=== PATIENT | female | born 1980 | race Caucasian/White ===

== ENCOUNTER 2019-12-25 17:11 | Emergency (ER) | payer SELFPAY ==
[2019-12-25 17:54] LABS: Absolute Lymphocytes (CBC) 2.9 K/uL (0.7-4.9); Basophils % 1.2 % (0-1.3); Hematocrit 41.6 % (36.0-45.0); Lymphocytes % 30.4 % (15.3-44.8); RBC Red Blood Cell Count 4.98 M/uL (3.86-4.86)
[2019-12-25 18:15] LABS: Bilirubin Direct 0.1 mg/dL (0-0.2); Bilirubin Total 0.7 mg/dL (0.2-1.0); Protein, Total 8.4 g/dL (6.4-8.2)
[2019-12-25 18:16] LABS: Potassium 3.8 mmol/L (3.5-5.1)
[2019-12-25] MEDS ORDERED: MORPHINE 4 MG/ML SYR ONE ×2 (18:36→21:37)
[2019-12-25] MEDS ORDERED: ONDANSETRON 4 MG/2 ML VIAL ONE (18:36)
[2019-12-25] MEDS ORDERED: NA CHLORIDE 0.9% 1,000 ML ONE (18:36)
[2019-12-25 19:25] LABS: Barbiturates NEGATIVE (NEGATIVE); Benzodiazepines NEGATIVE (NEGATIVE); Cocaine NEGATIVE (NEGATIVE); METHAMPHETAM NEGATIVE (NEGATIVE); Methadone NEGATIVE (NEGATIVE); Opiates POSITIVE (NEGATIVE); Phencyclidine NEGATIVE (NEGATIVE); THC Cannibis NEGATIVE (NEGATIVE)
--- NOTE | 2019-12-25 19:38 | RAD REPORT ---
EXAM DESCRIPTION: CT - Abdomen Pelvis W Contrast - 12/25/2019 7:22 pm CLINICAL HISTORY: Abdominal pain COMPARISON: none. TECHNIQUE: Computed axial tomography of the abdomen pelvis was obtained. 100 cc Isovue-300 was admin istered intravenously. Oral contrast was not requested which limits evaluation of bowel. All CT scans are performed using dose optimization technique as appropriate and may include automated exposure control or mA/KV adjustment according to patient size. FINDINGS: The liver, spleen, pancreas, adrenal and kidneys appear unremarkable. There is no evidence of diverticulitis. Normal appendix A 2 centimeter left ovarian cyst without significant free fluid Cholecystectomy Apparent thickening of the wall of the descending colon. IMPRESSION: A 2 centimeter left ovarian cyst without significant free fluid Apparent thickening of the wall of the descending colon probably secondary to incomplete distention. A mild colitis can also have this appearance should be correlated clinically
[2019-12-25 20:50] LABS: Urine Specific Gravity >1.030 (1.005-1.030)
[2019-12-25 20:50] LABS: Urine Blood NEGATIVE (NEG); Urine Glucose NEGATIVE (NEG); Urine Protein NEGATIVE (NEG); Urine Specific Gravity >1.030 (1.005-1.030); Urine pH 5.5 (5.0-7.0)
--- NOTE | 2019-12-25 21:52 | EDPHYS ---
Physician Documentation [facility] Name: Mee Prieto Age: 39 yrs Sex: Female : 1980 Arrival Date: 12/25/2019 Time: 17:18 Bed 24 Private MD: ED Physician Roly Chen HPI: 12/24 17:47 This 39 yrs old Female presents to ER via EMS with complaints of Abdominal kdr Pain. 17:47 The patient presents with abdominal pain in the right upper quadrant, right lower kdr quadrant. Onset: The symptoms/episode began/occurred suddenly, 1.5 hour(s) ago. The symptoms do not radiate. Associated signs and symptoms: Pertinent positives: nausea, Pertinent negatives: anorexia, blood in stools, chest pain, constipation, diarrhea, dysuria, fever, headache, hematuria, palpitations, shortness of breath, vaginal discharge, vomiting, vomiting blood. The symptoms are described as constant, sharp, steady. Modifying factors: The symptoms are alleviated by nothing, the symptoms are aggravated by coughing, breathing deeply, movement, touching the area, vomiting, walking. Severity of pain: At its worst the pain was moderate severe incapacitating just prior to arrival, in the emergency department the pain is unchanged. The patient has experienced a previous episode, When she had gallbladder problems. The patient has not recently seen a physician. Historical: - Allergies: 19:51 No Known Allergies; sg - Home Meds: 19:00 [employer] Thyroid 60 mg oral tab daily [Active]; Celexa 20 mg Oral tab 1 tab once daily ls4 [Active]; - PMHx: 19:00 Hypothyroidism; Depression; ls4 - PSHx: 19:00 Cholecystectomy; ls4 - Immunization history:: Adult Immunizations up to date. - Social history:: Smoking status: Patient reports the use of cigarette tobacco products, smokes one-half pack cigarettes per day, Patient uses alcohol, occasionally. ROS: 17:47 Constitutional: Negative for fever, chills, and weight loss, Eyes: Negative for injury, kdr pain, redness, and discharge, ENT: Negative for injury, pain, and discharge, Neck: Negative for injury, pain, and swelling, Cardiovascular: Negative for chest pain, palpitations, and edema, Respiratory: Negative for shortness of breath, cough, wheezing, and pleuritic chest pain, Back: Negative for injury and pain, : Negative for injury, bleeding, discharge, and swelling, MS/Extremity: Negative for injury and deformity, Skin: Negative for injury, rash, and discoloration, Neuro: Negative for headache, weakness, numbness, tingling, and seizure activity. Psych: Negative for depression, anxiety, suicide ideation, homicidal ideation, and hallucinations, Allergy/Immunology: Negative for hives, rash, and allergies, Endocrine: Negative for neck swelling, polydipsia, polyuria, polyphagia, and marked weight changes, Hematologic/Lymphatic: Negative for swollen nodes, abnormal bleeding, and unusual bruising. 17:47 Abdomen/GI: Positive for abdominal pain, nausea, abdominal cramps, Negative for vomiting, diarrhea, abdominal cramps, abdominal distension, anorexia, dysphagia, hematemesis, black/tarry stool, rectal pain, rectal bleeding, bowel incontinence. Exam: 17:47 Constitutional: This is a well developed, well nourished patient who is awake, alert, kdr and in no acute distress. Head/Face: Normocephalic, atraumatic. Eyes: Pupils equal round and reactive to light, extra-ocular motions intact. Lids and lashes normal. Conjunctiva and sclera are non-icteric and not injected. Cornea within normal limits. Periorbital areas with no swelling, redness, or edema. Neck: Trachea midline, no thyromegaly or masses palpated, and no cervical lymphadenopathy. Supple, full range of motion without nuchal rigidity, or vertebral point tenderness. No Meningismus. Chest/axilla: Normal chest wall appearance and motion. Nontender with no deformity. No lesions are appreciated. Cardiovascular: Regular rate and rhythm with a normal S1 and S2. No gallops, murmurs, or rubs. Normal PMI, no JVD. No pulse deficits. Respiratory: Lungs have equal breath sounds bilaterally, clear to auscultation and percussion. No rales, rhonchi or wheezes noted. No increased work of breathing, no retractions or nasal flaring. Back: No spinal tenderness. No costovertebral tenderness. Full range of motion. Skin: Warm, dry with normal turgor. Normal color with no rashes, no lesions, and no evidence of cellulitis. MS/ Extremity: Pulses equal, no cyanosis. Neurovascular intact. Full, normal range of motion. Neuro: Awake and alert, GCS 15, oriented to person, place, time, and situation. Cranial nerves II-XII grossly intact. Motor strength 5/5 in all extremities. Sensory grossly intact. Cerebellar exam normal. Normal gait. Psych: Awake, alert, with orientation to person, place and time. Behavior, mood, and affect are within normal limits. 17:47 Abdomen/GI: Inspection: abdomen appears normal, Bowel sounds: active, diminished, in all quadrants, Palpation: soft, moderate abdominal tenderness, in the anterior aspect of right lateral abdomen and right lower quadrant, mass, is not appreciated, rebound tenderness, is not appreciated, voluntary guarding, is not appreciated, involuntary guarding, is not appreciated. Vital Signs: 19:49 BP 103 / 63; Pulse 77; Resp 16; Temp 97.2; Pulse Ox 97% on R/A; Pain 4/10; sg MDM: 17:47 Data reviewed: vital signs, nurses notes, lab test result(s), radiologic studies. kdr Counseling: I had a detailed discussion with the patient and/or guardian regarding: the historical points, exam findings, and any diagnostic results supporting the discharge/admit diagnosis, lab results, radiology results, the need for outpatient follow up. 21:50 Differential diagnosis: appendicitis, bowel obstruction, cholecystitis, Cholelithiasis, mh7 diverticulitis, Ectopic , non-specific abd pain, pancreatitis, Peptic Ulcer Disease, Pyelonephritis, urinary tract infection. Data interpreted: Pulse oximetry: on room air is 97 %. Interpretation: normal. Counseling: I had a detailed discussion with the patient and/or guardian regarding: to return to the emergency department if symptoms worsen or persist or if there are any questions or concerns that arise at home. Response to treatment: the patient's symptoms have markedly improved after treatment. 21:[address] [facility] 12/24 17:31 Order name: Basic Metabolic Panel; Complete Time: 18:42 [facility] 12/24 17:31 Order name: CBC with Diff; Complete Time: 18:42 [facility] 12/24 17:31 Order name: Hepatic Function; Complete Time: 18:42 [facility] 12/24 17:31 Order name: Lipase; Complete Time: 18:42 [facility] 12/24 17:46 Order name: ETOH Level; Complete Time: 21:17 [facility] 12/24 17:46 Order name: UDS; Complete Time: 21:17 kdr 12/24 17:31 Order name: IV Saline Lock; Complete Time: 18:24 kdr 12/24 17:46 Order name: CT Abd/Pelvis - IV Contrast Only; Complete Time: 21:17 kdr 12/24 20:44 Order name: Urine Dipstick--Ancillary (enter results); Complete Time: 21:17 12/24 20:45 Order name: Urine --Ancillary (enter results); Complete Time: 21:17 12/24 17:31 Order name: Labs collected and sent; Complete Time: 18:24 kdr 12/24 17:46 Order name: Urine Dipstick-Ancillary (obtain specimen); Complete Time: 18:56 kdr 12/24 17:46 Order name: Urine Test (obtain specimen); Complete Time: 18:56 kdr Administered Medications: 18:35 Drug: NS 0.9% 1000 ml Route: IV; Rate: 1 bolus; Site: left wrist; ls4 18:35 Drug: Zofran (Ondansetron) 4 mg Route: IVP; Site: left wrist; ls4 18:56 Follow up: Response: No adverse reaction; Marked relief of symptoms ls4 18:38 Drug: morphine 4 mg Route: IVP; Site: left wrist; ls4 18:56 Follow up: Response: No adverse reaction; Marked relief of symptoms ls4 21:32 Drug: morphine 4 mg Route: IVP; Site: left hand; sg Disposition: 12/25/19 21:51 Discharged to Home. Impression: Colitis. - Condition is Stable. - Discharge Instructions: Colitis. - Prescriptions for Zofran ODT 4 mg Oral tablet,disintegrating - place 1 tablet by TRANSLINGUAL route every 8 hours; 10 tablet. Bentyl 20 mg Oral Tablet - take 1 tablet by ORAL route every 6 hours As needed; 20 tablet. Flagyl 500 mg Oral Tablet - take 1 tablet by ORAL route every 8 hours for 7 days; 21 tablet. Cipro 500 mg Oral Tablet - take 1 tablet by ORAL route every 12 hours for 7 days; 14 tablet. - Medication Reconciliation Form, Thank You Letter, Antibiotic Education, Prescription Opioid Use form. - Follow up: Private Physician; When: 2 - 3 days; Reason: Worsening of condition, Recheck today's complaints, Continuance of care, Re-evaluation by your physician. - Problem is new. - Symptoms have improved. Signatures: Dispatcher [employer] EDMS Eliseo Rao RN RN sg Trino Salvador MD MD [facility] Jennifer Garrett RN RN ls4 Roly Chen MD MD 7 Corrections: (The following items were deleted from the chart) 22:00 21:51 12/25/2019 21:51 Discharged to Home. Impression: Colitis. Condition is Stable. sg Forms are Medication Reconciliation Form, Thank You Letter, Antibiotic Education, Prescription Opioid Use. Follow up: Private Physician; When: 2 - 3 days; Reason: Worsening of condition, Recheck today's complaints, Continuance of care, Re-evaluation by your physician. Problem is new. Symptoms have improved. mh7
--- NOTE | 2019-12-25 21:52 | ER ---
Nurse's Notes [facility] Name: Mee Prieto Age: 39 yrs Sex: Female : 1980 Arrival Date: 12/25/2019 Time: 17:18 Bed 24 Private MD: Diagnosis: Colitis Presentation: 12/24 17:19 Chief complaint: EMS states: CALLED FOR ABDOMINAL PAIN. PT STATES THE PAIN WOKE HER ls4 FROM A NAP ABOUT AN HOUR AND A HALF AGO. Coronavirus screen: Proceed with normal triage. Patient denies a cough. Patient denies shortness of breath or difficulty breathing. Patient denies measured and/or subjective temperature greater than 100.4F prior to today's visit. Patient denies travel on a cruise ship or to a country the [facility] currently lists as an affected area. Patient denies contact with known and/or suspected case of COVID-19. Ebola Screen: No symptoms or risks identified at this time. Initial Sepsis Screen: Does the patient meet any 2 criteria? No. Patient's initial sepsis screen is negative. Does the patient have a suspected source of infection? No. Patient's initial sepsis screen is negative. Risk Assessment: Do you want to hurt yourself or someone else? Patient reports no desire to harm self or others. Onset of symptoms was December 25, 2019 at 16:00. Care prior to arrival: None. Activity prior to arrival: None. 17:19 Method Of Arrival: EMS: [facility] ls4 17:19 Acuity: KWADWO 3 ls4 Triage Assessment: 18:25 General: Appears uncomfortable, Behavior is calm, cooperative. Neuro: No deficits ls4 noted. Cardiovascular: No deficits noted. Respiratory: No deficits noted. GI: Abdomen is non-distended, Bowel sounds present X 4 quads. Abdomen is tender to palpation in right lower quadrant. 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 - Social history:: Smoking status: Patient reports the use of cigarette tobacco products, smokes one-half pack cigarettes per day, Patient uses alcohol, occasionally. Screenin:20 Abuse screen: Denies threats or abuse. Denies injuries from another. Nutritional ls4 screening: No deficits noted. Tuberculosis screening: No symptoms or risk factors identified. Fall Risk None identified. Assessment: 17:20 General: SEE TRIAGE . ls4 17:20 Pain: Complains of pain in right lower quadrant Pain currently is 10 out of 10 on a ls4 pain scale. Quality of pain is described as stabbing. Neuro: No deficits noted. Cardiovascular: No deficits noted. Respiratory: No deficits noted. 18:57 Reassessment: Patient appears in no apparent distress at this time. Patient and/or ls4 family updated on plan of care and expected duration. Pain level reassessed. Patient is alert, oriented x 3, equal unlabored respirations, skin warm/dry/pink. 19:48 Reassessment: Patient appears in no apparent distress at this time. Patient and/or sg family updated on plan of care and expected duration. Pain level reassessed. pt states I still have the pain, its much less than before but still there, reports nausea has improved, results are back. ERP notified, pt awaiting new orders at this time. 20:42 Reassessment: Patient appears in no apparent distress at this time. Patient and/or sg family updated on plan of care and expected duration. Pain level reassessed. Patient is alert, oriented x 3, equal unlabored respirations, skin warm/dry/pink. no new orders received at this time, pt resting and watching TV, awaiting dispo orders. Vital Signs: 19:49 BP 103 / 63; Pulse 77; Resp 16; Temp 97.2; Pulse Ox 97% on R/A; Pain 4/10; sg ED Course: 17:18 Patient arrived in ED. ls4 17:20 Triage completed. ls4 17:20 Patient has correct armband on for positive identification. Bed in low position. Call ls4 light in reach. Side rails up X 1. secured entrance monitor on. Pulse ox on. NIBP on. Warm blanket given. Verbal reassurance given. Diet: Patient is NPO. 17:20 No provider procedures requiring assistance completed. Patient maintains SpO2 ls4 saturation greater than 95% on room air. 17:31 Trino Salvador MD is Attending Physician. kdr 18:24 Jennifer Garrett RN is Primary Nurse. ls4 18:25 Initial lab(s) drawn, by me, sent to lab. Inserted saline lock: 24 gauge in right ls4 wrist, using aseptic technique. 19:01 Attending Physician role handed off by Trino Salvador MD [facility] 19:01 Roly Chen MD is Attending Physician. [facility] 19:22 Primary Nurse role handed off by Jennifer Garrett RN 19:22 Eliseo Rao RN is Primary Nurse. sg 19:22 CT Abd/Pelvis - IV Contrast Only In Process Unspecified. EDMS 19:[address] back from [address]. sg Administered Medications: 18:35 Drug: NS 0.9% 1000 ml Route: IV; Rate: 1 bolus; Site: left wrist; ls4 18:35 Drug: Zofran (Ondansetron) 4 mg Route: IVP; Site: left wrist; ls4 18:56 Follow up: Response: No adverse reaction; Marked relief of symptoms ls4 18:38 Drug: morphine 4 mg Route: IVP; Site: left wrist; ls4 18:56 Follow up: Response: No adverse reaction; Marked relief of symptoms ls4 21:32 Drug: morphine 4 mg Route: IVP; Site: left hand; sg Outcome: 21:[address] . [facility] 22:00 Patient left the ED. sg Signatures: Dispatcher [employer] EDMS Eliseo Rao RN RN Trino Salvador MD MD [facility] Jennifer Garrett RN RN 4 Roly Chen MD MD [facility] Corrections: (The following items were deleted from the chart) 20:24 19:48 Reassessment: Patient appears in no apparent distress at this time. Patient sg and/or family updated on plan of care and expected duration. Pain level reassessed. pt states I still have the pain, its much less than before but still there, reports nausea has improved, results are back. Yung WILL notified, pt awaiting new orders at this time sg
[2019-12-25 22:14] VITALS: BP 103/63; TEMP 97.2; O2SAT 97
== END 2019-12-25 22:00 | disposition home or self-care (01) ==
LOC: ER 17:11
DX: K52.9 Noninfective gastroenteritis and colitis, unspecified (principal); E03.9 Hypothyroidism, unspecified; F32.9 Major depressive disorder, single episode, unspecified; F17.210 Nicotine dependence, cigarettes, uncomplicated
CPT/HCPCS: 36415; 74177; 80048; 80076; 80307; 80320; 81003; 81025; 83690; 85025; 99285; J2405; J7030; Q9967

== ENCOUNTER 2020-01-08 09:06 | Emergency (ER) | payer SELFPAY ==
--- OUTSIDE RECORDS SUMMARY | 2020-01-08 09:20 | XMS REPORT | Clinical Summary ---
:1980 [facility] Address [address] [place] [address] Care Team Providers Name Role Phone Jimbo Dior MD Primary Care Provider Unavailable Allergies No Known Allergies Medications Medication Sig Dispensed Refills Start Date End Date Status citalopram (CELEXA) 1/2 tab(s) 0 06/13/2016 Active 20 MG tablet [employer]RO[employer] 60 mg Tab TAKE 1 TABLET BY 0 01/06/2019 Active MOUTH ONCE DAILY FOR 90 DAYS budesonide-formotero Inhale 2 puffs by 0 Active l (SYMBICORT) 80-4.5 mouth via inhaler mcg/actuation 2 (two) times inhaler daily. ALBUTEROL INHL Inhale by mouth 0 Active via inhaler. sulfamethoxazole-tri Take 1 tablet (160 20 tablet 0 02/13/2019 methoprim (BACTRIM mg of trimethoprim 9 DS) 800-160 mg per total) by mouth 2 tablet (two) times daily for 10 days. cephalexin (KEFLEX) Take 1 capsule 40 capsule 0 02/13/2019 500 MG capsule (500 mg total) by 9 mouth 4 (four) times daily for 10 days. acetaminophen-codein Take 1 tablet by 8 tablet 0 02/13/2019 0 e (TYLENOL #3) mouth every 6 9 300-30 mg per tablet (six) hours as needed for Pain for up to 10 days. Max Daily Amount: 4 tablets ondansetron (ZOFRAN Take 1 tablet (4 14 tablet 0 02/13/2019 ODT) 4 MG mg total) by mouth 9 disintegrating every 8 (eight) tablet hours as needed for Nausea for up to 7 days. Active Problems Not on file Encounters Date Type Specialty Care Team Description 02/13/2019 Emergency Emergency Medicine [place], Keiko Gutierrez llulitis of right lower extremity (Primary Dx); Bilateral leg p ain; Right leg swell ing; Malaise 02/13/2019 Travel after 01/07/2019 Social History Tobacco Use Types Packs/Day Years Used Date Current Every Day Smoker Cigarettes 0.5 Smokeless Tobacco: Never Used Comments: a few cigarettes a day. mostly vapes Alcohol Use Drinks/Week oz/Week Comments No Sex Assigned at Date Recorded Not on file Job Start Date Occupation Industry Not on file Not on file Not on file Travel History Travel Start Travel End No recent travel history available. Last Filed Vital Signs Vital Sign Reading Time Taken Blood Pressure 120/75 02/13/2019 11:23 AM CDT Pulse 90 02/13/2019 11:23 AM CDT Temperature 36.7 C (98 F) 02/13/2019 11:23 AM CDT Respiratory Rate 18 02/13/2019 11:23 AM CDT Oxygen Saturation 96% 02/13/2019 7:25 AM CDT Inhaled Oxygen Concentration - - Weight 77.1 kg (170 lb) 02/13/2019 7:25 AM CDT Height 160 cm (5' 3") 02/13/2019 7:25 AM CDT Body Mass Index 30.11 02/13/2019 7:25 AM CDT Plan of Treatment Not on file Procedures Procedure Name Priority Date/Time Associated Comments Diagnosis PERIPHERAL VASCULAR 02/13/2019 9:40 REPORT - SCAN AM CDT VENOUS DOPPLER LEGS STAT 02/13/2019 8:53 Resu lts for this BILATERAL AM CDT procedure are i n the results section. CBC W/PLT COUNT & AUTO STAT 02/13/2019 8:17 R esults for this DIFFERENTIAL AM CDT procedure are i n the results section. SCREEN, STAT 02/13/2019 8:17 Result s for this URINE AM CDT procedure are i n the results section. COMPREHENSIVE STAT 02/13/2019 8:17 Results fo r this METABOLIC PANEL AM CDT procedure ar e in the results section. CBC W/PLT COUNT & AUTO STAT 02/13/2019 8:17 R esults for this DIFFERENTIAL AM CDT procedure are i n the results section. after 01/07/2019 Results PERIPHERAL VASCULAR REPORT - SCAN (02/13/2019 9:40 AM CDT) Narrative Performed At This result has an attachment that is no t available. Venous doppler legs bilateral (02/13/2019 8:53 AM CDT) Specimen Narrative Performed At FINAL REPORT [facility] TECHNIQUE: Bilateral lower extremity theo ous ultrasound dated 02/13/2019 CLINICAL HISTORY: Leg swelling eval COMPARISON STUDY: Non FINDINGS: There is normal flow, compress ion, respiratory variation and augmentation in all the deep venous structures from the inguinal to popliteal region in both lower extrem ities. The posterior tibial and peroneal veins were also assessed an d are unremarkable. Impression: No evidence of a DVT in [facility] lower extremity. Signed: Tiana De Luna MD Report Verified Date/Time:02/13/2019 09:06:28 Reading Location: [facility] Procedure Note Interface, External Ris In - 02/13/2019 9:08 AM CDT FINAL REPORT TECHNIQUE: Bilateral lower extremity theo ous ultrasound dated 02/13/2019 CLINICAL HISTORY: Leg swelling eval COMPARISON STUDY: Non FINDINGS: There is normal flow, compress ion, respiratory variation and augmentation in all the deep venous structures from the inguinal to popliteal region in both lower extrem ities. The posterior tibial and peroneal veins were also assessed an d are unremarkable. Impression: No evidence of a DVT in [facility] lower extremity. Signed: Tiana De Luna MD Report Verified Date/Time: 02/13/2019 0 9:06:28 Reading Location: [facility] Reading Katt Performing Organization Address City/State/Zipcode Phone Number [facility] CBC with platelet count + automated diff (02/13/2019 8:17 AM CDT) WBC 5.8 4.0 - 10.0 K/L [facility] RBC 4.18 4.00 - 5.00 M/L [facility] Hemoglobin 11.5 (L) 12.0 - 15.5 GM/DL [facility] Hematocrit 34.5 (L) 36.0 - 46.0 % [facility] MCV 82.5 82.0 - 99.0 fL [facility] MCH 27.5 27.0 - 33.0 pg [facility] MCHC 33.3 32.0 - 36.0 GM/DL [facility] RDW 13.4 12.0 - 15.0 % [facility] Platelets 141 (L) 150 - 430 K/CU MM [facility] MPV 9.3Comment: 6.0 - 11.5 fL [facility] MPV-Approximately 20% positive bias due to method change. nRBC 0 0 - 0 /100 WBC [facility] % Neutros 50 % [facility] % Lymphs 32 % [facility] % Monos 11 % [facility] % Eos 6 % [facility] % Baso 1 % [facility] # Neutros 2.89 1.80 - 8.00 K/L [facility] # Lymphs 1.83 1.48 - 4.50 K/L [facility] # Monos 0.62 0.00 - 1.30 K/L [facility] # Eos 0.37 0.00 - 0.50 K/L [facility] # Baso 0.03 0.00 - 0.20 K/L [facility] Immature 0 0 - 0 % [facility] Granulocytes-Relative Specimen Blood Performing Organization Address [facility] Phone Number [facility] [address] [address] screen, urine (02/13/2019 8:17 AM CDT) Preg Test, Ur Negative [facility] Specimen Urine Performing Organization Address [facility] Phone Number [facility] [address] [address] Comprehensive metabolic panel (02/13/2019 8:17 AM CDT) Protein, Total 7.3 6.0 - 8.5 gm/dL [facility] Albumin 3.8 3.5 - 5.0 g/dL [facility] Alkaline Phosphatase 127 (H) 30 - 115 U/L [facility] Total Bilirubin 0.6 0.1 - 1.3 mg/dL [facility] Sodium 136 135 - 148 meq/L [facility] Potassium 3.5 3.5 - 5.5 meq/L [facility] Chloride 98 98 - 106 meq/L [facility] CO2 28 20 - 31 meq/L [facility] BUN 11 10 - 26 mg/dL [facility] Creatinine 0.79 0.50 - 1.20 mg/dL [facility] Glucose 132 (H) 70 - 110 mg/dL [facility] Calcium 9.0 8.5 - 10.5 mg/dL [facility] AST 38 5 - 40 U/L [facility] ALT 55 (H) 6 - 50 U/L [facility] EGFR 81Comment: ESTIMATED GFR mL/min/1.73 sq m [facility] IS NOT ACCURATE CREATININE CLEARANCE IN PREDICTING GLOMERULAR FILTRATION RATE. ESTIMATED GFR IS NOT APPLICABLE FOR DIALYSIS PATIENTS. Specimen Blood Performing Organization Address City/State/Zipcode Phone Number [facility] [address] [place], [place] [address] after 01/07/2019
--- OUTSIDE RECORDS SUMMARY | 2020-01-08 09:21 | XMS REPORT | Continuity of Care Document ---
:1980 Author Organization [facility] Care Team Providers Name Role Phone [facility] Unavailable Un available Problems Problem Status Onset Classification Date Comments Sourc e Date Reported Depression with Active Problem 01/09/2019 eCW : anxiety [facility] Smoker Active Problem 01/09/2019 eCW: [facility] Mild intermittent Active Problem 01/09/2019 e CW: asthma without [place] complication [facility] Attention deficit Active Problem 01/09/2019 e CW: disorder / ADHD [facility] (unspecified) Primar y Care ASTHMA NOS Active Problem 01/09/2019 eCW: [facility] Acquired Active Problem 01/09/2019 [facility] Acute bronchitis, Active Diagnosis 04/02/2018 e CW: unspecified [facility] organism Primary Care Pharyngitis, Active Diagnosis 09/18/2017 eCW: unspecified [facility] etiology Primary Care Acute upper Active Diagnosis 09/18/2017 eCW: respiratory [facility] infection, Primary unspecified Care Unspecified acute Active Diagnosis 01/09/2019 e CW: conjunctivitis, [facility] unspecified eye Prim [facility] Care Hypothyroidism, Active Diagnosis 01/09/2019 eCW : unspecified [facility] Anxiety disorder, Active Diagnosis 01/09/2019 e CW: unspecified [facility] Acute pharyngitis Active Diagnosis 05/06/2014 e CW: [facility] Hives Active Diagnosis 01/09/2019 eCW: [facility] Lumbar back pain Active Diagnosis 06/14/2016 eC W: with radiculopathy [place] affecting left Prima ry lower extremity Care Medications Medication Details Route Status Patient Ordering Order Source Instructions Provider Date Medrol Dosepak as NA Active 4 mg [place] 01/08/ eCW: directed 2018 [facility] acyclovir 1 tab(s) orally Active 800 mg orally [place] 01/06/ eCW: 5 times a day 2018 [facility] Primary [facility] ciprofloxacin 2 gtt in each Active 0.3% in each [place] 01/06/ eCW: ophthalmic affected affected eye 2018 [place] [facility] every 4 hours Primary Care moxifloxacin 1 gtt in each Active 0.5% in each [place] 01/06/ eCW: ophthalmic affected affected eye 2 2018 [facility] ood eye times a day Primary Care Cheratussin AC 10 mL orally Active 10 mg-100 mg/5 [place] 09/13/ eC W: mL orally 2017 [facility] every 4 hours Primary Care prednisone as orally Active 10 mg orally [place] 09/13/ eCW: directed take 4 tabs po 2017 [facility] daily then Primary taper by one Care tab Q72H cephalexin 1 cap(s) orally Active 500 mg orally [place] 03/29/ eCW: BID 2016 [facility] Thyroid 1 tab(s) orally Active 60 mg orally [place] 03/27/ eC W: once a day 2016 [facility] prednisone 1 tab(s) orally Active 10 mg orally 4 [place] 03/11/ eCW: tabs po daily 2016 [facility] then taper by Primary one tab Q72H Care Cheratussin AC 10 mL orally Active 10 mg-100 mg/5 [place] 03/11/ eC W: mL orally 2016 [facility] every 4 hours, Primary prn cough Care albuterol 3 mL inhaled Active 2.5 mg/3 mL [place] 11/27/ eCW: (0.083%) 2016 [facility] inhaled every Primary 6 hours Care albuterol 3 mL inhaled Active 2.5 mg/3 mL [place] 11/27/ eCW: (0.083%) 2016 [facility] inhaled every Primary 6 hours Care montelukast 1 tab(s) orally Active 10 mg orally [place] 11/22/ eCW: once a day 2016 [facility] Ativan 1 tab(s) orally Active 0.5 mg orally [place] 11/22/ eCW: TID prn 2016 [facility] anxiety Primary [facility] montelukast 1 tab(s) orally Active 10 mg orally [place] 11/22/ eCW: once a day 2016 [facility] Ativan 1 tab(s) orally Active 0.5 mg orally [place] 11/22/ eCW: TID prn 2016 [facility] anxiety Primary Care Valtrex 1 tab(s) orally Active 1 g orally [place] 08/21/ eCW: every 8 hours 2016 [facility] Celexa 1 tab orally Active 20 mg orally [place] 06/13/ eCW: once a day 2015 [facility] Celexa 1 tab orally Active 20 mg orally Tisha 06/13/ eCW: once a day 2015 [facility] Celexa 1 tab orally Active 20 mg orally [place]isha 06/13/ eCW: once a day 2015 [facility] ibuprofen 1 tab(s) orally Active 800 mg orally [place] 01/04/ eCW: 3 times a day 2015 [facility] cyclobenzaprine 1 tab(s) orally Active 10 mg orally 3 [place] 01/04/ eCW: times a day 2015 [facility] Tylenol with 1 tab(s) orally Active 300 mg-30 mg [place] 01/04/ eCW: Codeine #3 orally three 2015 [facility] times a day Primary prn severe Care pain Chlorpheniramine 5 ml orally Active 8 mg-10 mg/5 [place] 10/02/ e CW: Polistirex- mL orally 2013 [facility] HYDROcodone every 12 hours Prima ry Polistirex ER as needed for Care cough Azithromycin 5 Day 2 tablets orally Active 250 mg orally [place] 09/15 8/ eCW: Dose Pack on the once a day 2013 [facility] first day, Primary then 1 Care tablet daily for 4 days Ventolin HFA inhale 2 inhaled Active CFC free 90 [place] 10/02/ eCW: puffs by mcg/inh 2013 [facility] mouth inhaled q4h Primary every 4 to PRN Care 6 hours as needed Dulera 2 puff(s) inhaled Active 5 mcg-100 [place] 09/05/ eCW: mcg/inh 2013 [facility] inhaled 2 Primary times a day Care Montelukast Sodium 1 tab(s) orally Active 10 mg orally [place] 09/05/ eCW: once a day (in 2013 [facility] the evening) Primary Care Vyvanse 1 cap(s) orally Active 30 mg orally [place] 09/05/ eCW: once a day (in 2013 [facility] the morning) Primary Care Ventolin HFA inhale 2 inhaled Active CFC free 90 [place] eCW: puffs by mcg/inh [facility] mouth inhaled Q4-6H Primary every 4 to prn Care 6 hours as needed Advair Diskus 1 puff(s) inhaled Active 250 mcg-50 mcg [place] eCW: inhaled 2 [facility] times a day Primary Care Advair Diskus 1 puff(s) inhaled Active 250 mcg-50 mcg [place] e CW: inhaled 2 [facility] times a day Primary Care Ventolin HFA inhale 2 inhaled Active CFC free 90 [place] eCW: puffs by mcg/inh [facility] mouth inhaled Q4-6H Primary every 4 to prn Care 6 hours as needed albuterol 3 mL inhaled Active 0.083% inhaled [place] eCW: every 6 hours [facility] Thyroid 1 tab(s) orally Active 60 mg orally [place] eCW : once a day [facility] Celexa 1 tab orally Active 20 mg orally [place] eCW: once a day [facility] Celexa 1/2 tab(s) orally No 10 mg orally [place] eCW: Longer once a day [facility] Allergies, Adverse Reactions, Alerts Substance Category Reaction Severity Reaction Status Date Comments S ource type Reported N.K.D.A. Adverse Info Not Adverse Active eCW: Reaction Available Reaction 9 [facility] Immunizations Immunization Date Given Site Status Last Comments Source Updated Solu-medrol 01/05/2016 completed eCW: [facility] re Toradol 01/05/2016 completed eCW: [facility] re Results No Data Provided for This Section Pathology Reports No Data Provided for This Section Diagnostic Reports No Data Provided for This Section Consultation Notes No Data Provided for This Section Discharge Summaries No Data Provided for This Section History and Physicals No Data Provided for This Section Vital Signs Vital Sign Value Date Comments Source Systolic (mm Hg) 104 [facility] Heart [facility] 98 01/08/2019 eCW: [facility] Temperature Oral (F) 98.5 F 01/08/2019 eCW: [facility] Primary Care Weight 169 01/08/2019 eCW: [facility] Height 62 01/08/2019 eCW: [facility] Diastolic (mm Hg) 68 01/08/2019 eCW: [facility] Primary Care Systolic (mm Hg) 117 01/06/2019 eCW: [place] [facility] Heart Rate 89 01/06/2019 eCW: [facility] Temperature Oral (F) 98.0 F 01/06/2019 eCW: [place] [facility] Weight 166.6 01/06/2019 eCW: [facility] Height 62 01/06/2019 eCW: [facility] Diastolic (mm Hg) 79 01/06/2019 eCW: [place] [facility] [facility] Systolic (mm Hg) 104 09/13/2017 eCW: [place] [facility] Heart Rate 101 09/13/2017 eCW: [place] [facility] Temperature Oral (F) 98.5 F 09/13/2017 eCW: [place] [facility] Weight 153 09/13/2017 eCW: [place] [facility] Height 63 09/13/2017 eCW: [facility] Diastolic (mm Hg) 70 09/13/2017 eCW: [place] [facility] Systolic (mm Hg) 136 03/29/2017 eCW: [place] [facility] Heart Rate 86 03/29/2017 eCW: [facility] Temperature Oral (F) 99.0 F 03/29/2017 eCW: [place] [facility] Weight 168 03/29/2017 eCW: [facility] Height 63 03/29/2017 eCW: [facility] Diastolic (mm Hg) 74 03/29/2017 eCW: [place] [facility] Systolic (mm Hg) 118 03/11/2017 eCW: [place] [facility] Heart Rate 94 03/11/2017 eCW: [facility] Temperature Oral (F) 98.5 F 03/11/2017 eCW: [place] [facility] Weight 171 03/11/2017 eCW: [place] [facility] Height 63 03/11/2017 eCW: [place] [facility] Diastolic (mm Hg) 64 03/11/2017 eCW: [place] [facility] Systolic (mm Hg) 121 11/22/2016 eCW: [place] [facility] Heart Rate 89 11/22/2016 eCW: [facility] Temperature Oral (F) 98.6 F 11/22/2016 eCW: [place] [facility] Weight 174.9 11/22/2016 eCW: [place] [facility] Height 63 11/22/2016 eCW: [facility] Diastolic (mm Hg) 80 11/22/2016 eCW: [place] [facility] Systolic (mm Hg) 103 01/05/2016 eCW: [place] [facility] Heart Rate 82 01/05/2016 eCW: [place] [facility] Temperature Oral (F) 98.0 F 01/05/2016 eCW: [place] [facility] Weight 152 01/05/2016 eCW: [facility] Height 63 01/05/2016 eCW: [place] [facility] Diastolic (mm Hg) 63 01/05/2016 eCW: [place] [facility] Systolic (mm Hg) 111 10/02/2013 eCW: [place] [facility] Heart Rate 76 10/02/2013 eCW: [facility] Temperature Oral (F) 98.2 F 10/02/2013 eCW: [place] [facility] Weight 147.2 10/02/2013 eCW: [place] [facility] Height 63 10/02/2013 eCW: [place] [facility] Diastolic (mm Hg) 75 10/02/2013 eCW: [place] [facility] Systolic (mm Hg) 115 09/05/2013 eCW: [place] [facility] Heart Rate 91 09/05/2013 eCW: [place] [facility] Temperature Oral (F) 98.3 F 09/05/2013 eCW: [place] [facility] Weight 148 09/05/2013 eCW: [place] [facility] Height 63 09/05/2013 eCW: [place] [facility] Diastolic (mm Hg) 76 09/05/2013 eCW: [place] [facility] Encounters Location Location Encounter Encounter Reason Attending ADM DC Stat Source Details Type Number For Provider Date Date Visit [place] Unknown [id number] 09/05 09/05 eC W: Primary [id number]-[id number] /2013 [place] [facility] [id number] Pr imary 894 Care [facility] Unknown [id number] 09/05 09/05 eC W: Primary 2a-8o95-1pt /2013 [place] [facility] f-[id number] Pr imary 3a7 Care [facility] Unknown [id number] 09/05 09/05 eC W: Primary 8a-4f7c-68o /2013 [place] [facility] 5-[id number] Pr imary d66 Care [place] Unknown [id number] 09/05 09/05 eC W: Primary ac-58h6-947 /2013 [place] [facility] [id number] Pr imary b60 Care [place] Unknown [id number] 09/05 09/05 eC W: Primary 4b-4fr4-35t /2013 [place] [facility] c-[id number] Pr imary fc0 Care [place] Unknown [id number] 09/05 09/05 eC W: Primary 4f-55k2-k9t /2013 [place] [facility] 7-[id number] Pr imary e21 Care [facility] Unknown [id number] 09/05 09/05 eC W: Primary 6e-7aw5-lzo /2013 [place] [facility] b-[id number] Pr imary 4f5 Care [facility] Unknown [id number] 09/05 09/05 eC W: Primary 17-06t7-k88 /2013 [place] [facility] [id number] Pr imary 745 Care [place] Unknown [id number] 09/05 09/05 eC W: Primary 1e-4baa-b9e /2013 [place] [facility] [id number] Pr imary 4e7 Care [place] Unknown [id number] 09/05 09/05 eC W: Primary 9b-400e-84d /2013 [place] [facility] c-[id number] Pr imary 598 Care [place] Unknown [id number] 09/05 09/05 eC W: Primary 6e-32z3-4hq /2013 [place] [facility] [id number] Pr imary d25 Care [place] Unknown [id number] 09/05 09/05 eC W: Primary bf-4360-a18 /2013 [place] [facility] [id number] Pr imary faf Care [place] Unknown [id number] 09/05 09/05 eC W: Primary 4d-0ms1-j47 /2013 [place] [facility] [id number] Pr imary e78 Care [place] Unknown [id number] 09/05 09/05 eC W: Primary fe-8g6e-863 /2013 [place] [facility] [id number] Pr imary 2f6 Care [place] [facility] [id number] 09/07 09/07 eCW : Primary 33-4480-a22 /2013 [place] [facility] a-[id number] Pr imary 7e9 Care [facility] [id number] 09/07 09/07 eCW : Primary 05-89f9-87z /2013 [place] [facility] [id number] Pr imary 091 Care [facility] [id number] 09/07 09/07 eCW : Primary 5b-81d0-x0d /2013 [place] [facility] [id number] Pr imary 8ab Care [facility] [id number] 09/07 09/07 eCW : Primary c9-4484-8d8 /2013 [place] [facility] 8-[id number] Pr imary 78f Care [place] [facility] [id number] 09/07 09/07 eCW : Primary 25-419f-997 /2013 [place] [facility] b-[id number] Pr imary ec7 Care [facility] [id number] 09/07 09/07 eCW : Primary dc-48ae-97d /2013 [place] [facility] 6-[id number] Pr imary 4c1 Care [place] [facility] [id number] 09/07 09/07 eCW : Primary 8c-4457-939 /2013 [place] [facility] c-[id number] Pr imary 47c Care [facility] [id number] 09/07 09/07 eCW : Primary 1c-81s4-kam [place] [facility] [id number] Pr imary 08b Care [facility] [id number] 09/07 09/07 eCW : Primary 10-7x26-u7s /2013 [place] [facility] e-[id number] Pr imary cba Care [place] [facility] [id number] 09/07 09/07 eCW : Primary 7c-49db-a10 /2013 [place] [facility] [id number] Pr imary f26 Care [place] [facility] [id number] 09/07 09/07 eCW : Primary de-6c65-a6t /2013 [place] [facility] b-[id number] Pr imary 2ee Care [place] [facility] [id number] 09/07 09/07 eCW : Primary 2b-6ob8-44j /2013 [place] [facility] a-[id number] Pr imary cd7 Care [facility] [id number] 09/07 09/07 eCW : Primary 40-2u9g-72w /2013 [place] [facility] f-[id number] Pr imary 869 Care [facility] Unknown [id number] 10/02 10/02 eC W: Primary ab-4801-b9c /2013 [place] [facility] [id number] Pr imary 9b0 Care [facility] Unknown [id number] 10/02 10/02 eC W: Primary 0a-2y02-750 /2013 [place] [facility] b-[id number] Pr imary 0c8 Care [facility] Unknown [id number] 10/02 10/02 eC W: Primary 49-8w08-832 /2013 [place] [facility] [id number] Pr imary 8b2 Care [place] Unknown [id number] 10/02 10/02 eC W: Primary 6b-65l1-360 /2013 [place] [facility] 2-[id number] Pr imary 34d Care [place] Unknown [id number] 10/02 10/02 eC W: Primary d3-20y9-y62 /2013 [place] [facility] [id number] Pr imary 3f1 Care [facility] Unknown [id number] 10/02 10/02 eC W: Primary 83-482e-bc4 /2013 [place] [facility] a-[id number] Pr imary 329 Care [facility] Unknown [id number] 10/02 10/02 eC W: Primary 2b-4758-bcc /2013 [place] [facility] c-[id number] Pr imary 4f2 Care [facility] Unknown [id number] 10/02 10/02 eC W: Primary 20-1p6b-0df /2013 [place] [facility] 9-[id number] Pr imary eb9 Care [place] Unknown [id number] 10/02 10/02 eC W: Primary cd-42i7-190 /2013 [place] [facility] 4-[id number] Pr imary 2cc Care [facility] Unknown [id number] 10/02 10/02 eC W: Primary c2-4l29-bj8 /2013 [place] [facility] 8-[id number] Pr imary e11 Care [facility] Unknown [id number] 10/02 10/02 eC W: Primary c0-25i1-j4b /2013 [place] [facility] 7-[id number] Pr imary aa8 Care [place] Unknown [id number] 10/02 10/02 eC W: Primary 1e-7q6c-k79 /2013 [place] [facility] 0-[id number] Pr imary 688 Care [facility] Unknown [id number] 12/23 12/23 eC W: Primary c5-01o6-569 /2013 [place] [facility] [id number] Pr imary 61e Care [facility] Unknown [id number] 12/23 12/23 eC W: Primary 93-4501-b17 /2013 [place] [facility] 5-[id number] Pr imary 3ee Care [facility] Unknown [id number] 12/23 12/23 eC W: Primary 6f-42ca-92f /2013 [place] [facility] 6-[id number] Pr imary 50c Care [facility] Unknown [id number] 12/23 12/23 eC W: Primary 5d-3m93-5ia /2013 [place] [facility] b-[id number] Pr imary 4aa Care [facility] Unknown [id number] 12/23 12/23 eC W: Primary 68-6fc1-n5r /2013 [place] [facility] [id number] Pr imary 518 Care [place] Unknown [id number] 12/23 12/23 eC W: Primary 96-4fcc-a7c /2013 [place] [facility] [id number] Pr imary b09 Care [place] Unknown [id number] 12/23 12/23 eC W: Primary b1-4332-91e /2013 [place] [facility] [id number] Pr imary 767 Care [place] Unknown [id number] 12/24 12/24 eC W: Primary 8c-44ed-8a9 /2013 [place] [facility] b-[id number] Pr imary a03 Care [place] Unknown [id number] 12/24 12/24 eC W: Primary f8-4296-b34 /2013 [place] [facility] [id number] Pr imary baa Care [place] Unknown [id number] 12/24 12/24 eC W: Primary 2f-7t64-20n /2013 [place] [facility] a-[id number] Pr imary 03a Care [facility] Unknown [id number] 12/24 12/24 eC W: Primary cb-8zx9-f3a /2013 [place] [facility] d-[id number] Pr imary 324 Care [place] rx request [id number] 04/02 04/02 eCW: Primary 87-9r87-32q /2013 [place] [facility] 9-[id number] Pr imary 1bc Care [place] rx request [id number] 04/02 04/02 eCW: Primary ac-404f-893 /2013 [place] [facility] f-[id number] Pr imary fa2 Care [facility] rx request [id number] 04/02 04/02 eCW: Primary e9-4fab-98d /2013 [place] [facility] 9-[id number] Pr imary 247 Care [facility] rx request [id number] 04/02 04/02 eCW: Primary 2c-47fd-af1 /2013 [place] [facility] 6-[id number] Pr imary 9bc Care [place] rx request [id number] 04/02 04/02 eCW: Primary b0-50s5-j7e /2013 [place] [facility] 2-[id number] Pr imary ca6 Care [place] rx request [id number] 04/02 04/02 eCW: Primary 35-8r28-7de /2013 [place] [facility] [id number] Pr imary 51f Care [place] rx request [id number] 04/02 04/02 eCW: Primary 0a-4812-a89 /2013 [place] [facility] 4-[id number] Pr imary de9 Care [facility] rx request [id number] 04/02 04/02 eCW: Primary 5a-19m0-i20 /2013 [place] [facility] f-[id number] Pr imary 637 Care [place] rx request [id number] 04/02 04/02 eCW: Primary 6e-3o40-y65 /2013 [place] [facility] b-[id number] Pr imary 594 Care [facility] rx request [id number] 04/02 04/02 eCW: Primary f9-493e-806 /2013 [place] [facility] 1-[id number] Pr imary 2bb Care [facility] Unknown [id number] 11/27 11/27 eC W: Primary 06-45ac-852 /2014 [place] [facility] c-[id number] Pr imary 198 Care [place] Unknown [id number] 11/27 11/27 eC W: Primary f1-413a-969 /2014 [place] [facility] [id number] Pr imary 6b4 Care [facility] Unknown [id number] 11/27 11/27 eC W: Primary 42-466b-abc /2014 [place] [facility] e-[id number] Pr imary ca1 Care [place] Unknown [id number] 11/27 11/27 eC W: Primary 62-43ef-8c0 /2014 [place] [facility] b-[id number] Pr imary 3ee Care [place] Unknown [id number] 11/27 11/27 eC W: Primary 77-2m56-4c8 /2014 [place] [facility] [id number] Pr imary b23 Care [place] Unknown [id number] 11/27 11/27 eC W: Primary c9-34z9-9d9 /2014 [place] [facility] [id number] Pr imary bf5 Care [place] Unknown [id number] 11/27 11/27 eC W: Primary 7c-89s4-93t /2014 [place] [facility] [id number] Pr imary 94b Care [facility] Unknown [id number] 11/27 11/27 eC W: Primary 73-33r6-0sx /2014 [place] [facility] [id number] Pr imary bee Care [place] PINCHED [id number] 01/04 01/04 eC W: Primary NERVE IN 11-4403-961 [facility] [facility] BACK 8-[id number] Pr imary 96f Care [facility] PINCHED [id number] 01/04 01/04 eC W: Primary NERVE IN 11-8fq8-078 /2015 [place] [facility] BACK e-[id number] Pr imary 53a Care [place] PINCHED [id number] 01/04 01/04 eC W: Primary NERVE IN 60-4261-95a /2015 [place] [facility] BACK 8-[id number] Pr imary 7bd Care [facility] PINCHED [id number] 01/04 01/04 eC W: Primary NERVE IN f7-4585-b6c /2015 [place] [facility] BACK a-[id number] Pr imary 1c8 Care [place] PINCHED [id number] 01/04 01/04 eC W: Primary NERVE IN 9e-9n1w-x45 /2015 [place] [facility] BACK [id number] Pr imary 145 Care [place] PINCHED [id number] 01/05 01/05 eC W: Primary NERVE IN 41-476e-845 /2015 [place] [facility] BACK 4-[id number] Pr imary 0c7 Care [facility] PINCHED [id number] 01/05 01/05 eC W: Primary NERVE IN fb-432b-8e7 /2015 [place] [facility] BACK [id number] Pr imary 3cf Care [facility] Unknown [id number] 01/05 01/05 eC W: Primary 91-4fef-bc9 /2015 [place] [facility] 0-[id number] Pr imary f7e Care [place] Unknown [id number] 01/05 01/05 eC W: Primary b8-4525-871 /2015 [place] [facility] c-[id number] Pr imary 45a Care [facility] Unknown [id number] 01/05 01/05 eC W: Primary f9-483a-812 /2015 [place] [facility] [id number] Pr imary eb3 Care [facility] Unknown [id number] 01/05 01/05 eC W: Primary 6c-20m5-am8 /2015 [place] [facility] 7-[id number] Pr imary 045 Care [facility] Unknown [id number] 01/05 01/05 eC W: Primary 97-4289-a4c /2015 [place] [facility] 7-[id number] Pr imary a3f Care [facility] Unknown [id number] 01/05 01/05 eC W: Primary 62-4bed-b0b /2015 [place] [facility] [id number] Pr imary 979 Care [facility] Unknown [id number] 01/05 01/05 eC W: Primary 2a-4142-94f /2015 [place] [facility] [id number] Pr imary 852 Care [place] Unknown [id number] 01/09 01/09 eC W: Primary 6c-5k2e-dts /2015 [place] [facility] a-[id number] Pr imary 6ab Care [place] Unknown [id number] 01/09 01/09 eC W: Primary 42-22q3-3qm /2015 [place] [facility] 2-[id number] Pr imary 029 Care [facility] Unknown [id number] 01/09 01/09 eC W: Primary e6-55w8-g19 /2015 [place] [facility] c-[id number] Pr imary f69 Care [facility] Unknown [id number] 01/09 01/09 eC W: Primary 62-41ee-a16 /2015 [place] [facility] f-[id number] Pr imary 8df Care [facility] Unknown [id number] 01/09 01/09 eC W: Primary e7-467e-ba5 /2015 [place] [facility] b-[id number] Pr imary de8 Care [facility] Test [id number] 01/14 01/14 eCW : Primary results M 25-7hj5-6o0 /2015 [facility] 01/14 1 b-[id number] Pr imary 501 Care [facility] Test [id number] 01/14 01/14 eCW : Primary results M 80-4cac-8e9 /2015 [place] 01/14 1 [id number] Pr imary 949 Care [facility] Test [id number] 01/14 01/14 eCW : Primary results M d6-450c-8d9 /2015 [place] [facility] 01/14 1 [id number] Pr imary 6be Care [facility] Test [id number] 01/14 01/14 eCW : Primary results M 2a-1k07-zwq /2015 [place] [facility] 01/14 1 [id number] Pr imary 563 Care [place] / [id number] 01/16 01/16 eCW : Primary Completed d4-1i5k-ohy /2015 [facility] referrals [id number] Primary (2) b1e Care [facility] 8/2 [id number] 01/16 01/16 eCW : Primary Completed 88-44bf-99c /2015 [facility] referrals [phone]-[id number] Primary (2) 5a9 Care [facility] 8/2 [id number] 01/16 01/16 eCW : Primary Completed 7e-3s9y-a15 /2015 [facility] referrals [id number] Primary (2) 338 Care [facility] LE 06/08 [id number] 06/08 06/08 e CW: Primary e8-4907-a79 /2015 [facility] 6-[id number] Pr imary ef9 Care [facility] LE 06/08 [id number] 06/08 06/08 e CW: Primary 9e-0fe3-80y /2015 [facility] Care,[facility] [id number] Pr imary a1d Care [facility] Refills [id number] 08/21 08/21 eC W: Primary [id number] /2016 [facility] [id number] Pr imary 0f1 Care Procedures No Data Provided for This Section Assessment and Plan No Data Provided for This Section Plan of Care No Data Provided for This Section Social History Social History Date Source Social History ElementQualifiersDate Reported 10/02/2013 eCW: [facility] Primary Passive Smoking Care no. October 02, 2013 Marital Status . October 02, 2013 Exercise no. October 02, 2013 Drug Use no. no October 02, 2013 Tobacco Use: no. Are you a: Current Smoker October 02, 2013 Alcohol no. no October 02, 2013 Family History Value Date Source QualifierDescriptionCommentDate Reported 01/06/2016 eCW: [facility] Primary Maternal Grand Mother Care Comment not available January 05, 2016 Paternal Grand Mother Comment not available January 05, 2016 Siblings alive Comment not available January 05, 2016 Maternal Grand Father Comment not available January 05, 2016 Children Comment not available January 05, 2016 Maternal aunt Comment not available January 05, 2016 Father alive Comment not available January 05, 2016 Paternal Grand Father Comment not available January 05, 2016 Paternal uncle Comment not available January 05, 2016 Mother alive Comment not available January 05, 2016 Paternal aunt Comment not available January 05, 2016 Maternal uncle Comment not available January 05, 2016 QualifierDescriptionCommentDate Reported 10/06/2013 eCW: [facility] alive Comment not available October 02, 2013 Mother alive Comment not available October 02, 2013 Siblings alive Comment not available October 02, 2013 QualifierDescriptionCommentDate Reported 09/08/2013 eCW: [facility] alive Comment not available September 05, 2013 Mother alive Comment not available September 05, 2013 Siblings alive Comment not available September 05, 2013 Advance Directives No Data Provided for This Section Functional Status No Data Provided for This Section
--- OUTSIDE RECORDS SUMMARY | 2020-01-08 09:23 | XMS REPORT | Continuity of Care Document ---
:1980 Author Organization [facility] t Address [address] [place] [address] Care Team Providers Name Role Phone Barby BRUNNER, Jimbo Rios Primary Care Physician Unavailable Humberto Garcia MD Attending Clinician HUMBERTO GARCIA Attending Clinician Unavailable Payers Payer Name Policy Type Policy Number Effective Date Expiration Date S ource Problems Condition Condition Condition Status Onset Resolution Last Treating Co mments Source Name Details Category Date Date Treatment Clinician Date Depression Problem Active 2019-01-09 M emoria with 02:50:39 l anxiety Herbie Depression with anxiety Active Problem 01/09/2019 eCW: [facility] Smoker Problem Active 2019-01-09 Memor ia 02:50:39 l Smoker [place] Active Problem 01/09/2019 eCW: [facility] Mild Problem Active 2019-01-09 Memor ia intermitte 02:50:39 l nt asthma Mild [place] without intermitte complicati nt asthma on without complicati on Active Problem 9 eCW: [facility] Attention Problem Active 2019-01-09 Me moria deficit 02:50:39 l disorder / Andrade n ADHD Attention (unspecifi deficit ed) disorder / ADHD (unspecifi ed) Active Problem 01/09/2019 eCW: [facility] ASTHMA NOS Problem Active 2019-01-09 M emoria 02:50:39 l ASTHMA Herbie NOS Active Problem 01/09/2019 eCW: [facility] Acquired Problem Active 2019-01-09 Mem oria hypothyroi 02:50:39 l dism Acquired Andrade n hypothyroi dism Active Problem 01/09/2019 eCW: [facility] Acute Diagnosis Active 2018-04-02 Mem oria bronchitis 02:49:25 l , Acute Herbie unspecifie bronchitis d organism , unspecifie d organism Active Diagnosis 04/02/2018 eCW: [facility] Pharyngiti Diagnosis Active 2017-09-18 Memoria s, 02:45:44 l unspecifie Andrade n d etiology Pharyngiti s, unspecifie d etiology Active Diagnosis 09/18/2017 eCW: [facility] Acute Diagnosis Active 2017-09-18 Mem oria upper 02:45:44 l respirator Acute Yessica nn y upper infection, respirator unspecifie y d infection, unspecifie d Active Diagnosis 09/18/2017 eCW: [facility] Unspecifie Diagnosis Active 2019-01-09 Memoria d acute 02:45:13 l conjunctiv Andrade n itis, Unspecifie unspecifie d acute d eye conjunctiv itis, unspecifie d eye Active Diagnosis 01/09/2019 eCW: [facility] Anxiety Diagnosis Active 2019-01-09 Me moria disorder, 02:45:13 l unspecifie Anxiety Her herrera d disorder, unspecifie d Active Diagnosis 01/09/2019 eCW: [facility] Acute Diagnosis Active 2014-05-06 Mem oria pharyngiti 03:46:24 l s Acute Herbie pharyngiti s Active Diagnosis 05/06/2014 eCW: [facility] Hives Diagnosis Active 2019-01-09 Mem oria 02:50:39 l Hives Herbie Active Diagnosis 01/09/2019 eCW: [facility] Lumbar Diagnosis Active 2016-06-14 Mem oria back pain 04:10:27 l with Lumbar [place] radiculopa back pain thy with affecting radiculopa left lower thy extremity affecting left lower extremity Active Diagnosis 06/14/2016 eCW: [facility] Allergies, Adverse Reactions, Alerts Allergy Allergy Status Severity Reaction(s) Onset Inactive Treating Comm ents Source Name Type Date Date Clinician No Known DA Active [facility] 12-13 Riley s 00:00: [facility] 00 are Luis JoahnsenAArthur Active Info Not Delvis cleve Available 01-08 l 00:00: [place] 00 No Known DA Active U [facility] Allergie 07-13 Clear s 00:00: [place] [facility] Family History Family Member Diagnosis Comments Start Date Stop Date Source Unknown Family Family History 2013-09-08 2013-09-08 Memori al [place] Member 01:16:08 01:16:08 Social History Social Habit Start Date Stop Date Quantity Comments Source History of tobacco Cigarette Smoker [facility] Sex Assigned At [facility] Cigarettes smoked 2019-02-13 2019-02-13 [facility] - current (pack per 00:00:00 00:00:00 [facility] day) - Reported Tobacco Comment 2019-02-13 2019-02-[address] [facility] 00:00:00 00:00:00 a day. mostly Medical Carleen ter vapes PassiveSmoking 2013-10-02 2013-10-02 [facility] 00:00:00 00:00:00 [place] Smoking Status Start Date Stop Date Source Current every day smoker 2019-02-13 00:00:00 [facility] Medications Ordered Filled Start Stop Current Ordering Indication Dosage Frequency Signature Comments Components Source Medication Medication Date Date Medication? Clinician (SIG) Name Name budesonide- Yes 2{puff} Q.5D Inhale 2 [facility] formoterol 8-30 puffs [facility] - (SYMBICORT) 07:28: mouth via edical 80-4.5 inhaler Center mcg/actuati (two) on inhaler times daily. ALBUTEROL Yes Inhale by [facility] INHL 8-30 mouth via [facility] - 07:28: inhaler. Medical [facility] Center sulfamethox 2019- No 160mg{t Q.5D Take [address] azole-trime 02-13 rimetho tablet Gracy kes - thoprim 00:00: 23:59 prim} (160 mg of Me dical (BACTRIM 00 :00 trimethopr Cente r DS) 800-160 im total) mg per by mouth 2 tablet (two) times daily for 10 days. cephalexin 2019- No 500mg Q.25D Take [address] (KEFLEX) 02-13 capsule [facility] - 500 MG 00:00: 23:59 (500 mg Medical capsule 00 :00 total) by Center mouth 4 (four) times daily for 10 days. acetaminoph 2019- No 1{tbl} Take [address] en-codeine 02-13 tablet by Luca es - (TYLENOL 00:00: 23:59 mouth Medical #3) 300-30 00 :00 every 6 Center mg per (six) tablet hours as needed for Pain for up to 10 days. Max Daily Amount: 4 tablets ondansetron 2019- No 4mg Take [address] (ZOFRAN 02-13 tablet (4 [facility] - ODT) 4 MG 00:00: 23:59 mg total) Me dical disintegrat 00 :00 by mouth Cent er ing tablet every 8 (eight) hours as needed for Nausea for up to 7 days. Advair Yes Abena 1 puff(s) M emoria Diskus 01-09 North l 02:50: Herbie 39 Ventolin Yes Abena inhale 2 Memoria HFA 01-09 North puffs by l 02:50: mouth Herbie 39 every 4 to 6 hours as needed albuterol Yes Abena 3 mL Mem oria 01-09 North l 02:50: Herbie 39 Midwest Yes Abena 1 tab(s) Me moria Thyroid 01-09 North l 02:50: [place] 39 Celexa Yes Abena 1 tab Memor ia 01-09 North l 02:50: Herbie 39 Medrol Yes Abena as Memori a Dosepak 01-08 North directed l 00:00: [place] 00 COLLECTIONS ASSOCIATE THYROID 2019-0 Yes TAKE 1 [facility] 60 mg Tab 01-06 TABLET BY [facility] - 00:00: MOUTH ONCE Medical 00 DAILY FOR Center 90 DAYS acyclovir 2019-0 Yes Abena 1 tab(s) Memoria 7-23 North l 00:00: ciprofloxac 2019-0 Yes Abena 2 gtt Memoria in 01-06 North l ophthalmic 00:00: moxifloxaci 2019-0 Yes Abena 1 gtt Memoria n 01-06 North l ophthalmic 00:00: Cheratussin 2018-0 Yes Esther 10 mL Delvis cleve AC 3-30 Mcdonald l 00:00: prednisone 2018-0 Yes Esther as Memori a 3-30 Mcdonald directed l 00:00: cephalexin 2017- Yes Estelita 1 cap(s) Memoria 0-13 Tisha l 00:00: Midwest 2017- Yes Mandaeism 1 tab(s) Me moria Thyroid 0-11 Dyhianto l 00:00: prednisone 2017-0 Yes Esther 1 tab(s) Me moria 9-25 Mcdonald l 00:00: Cheratussin 2017-0 Yes Esther 10 mL Delvis cleve AC 9-25 Cmdonald l 00:00: Ventolin 2017-0 Yes Mandaeism inhale 2 Memoria HFA 6-14 [place] puffs by l 02:45: mouth [place] 56 every 4 to 6 hours as needed Advair 2017-0 Yes Mandaeism 1 puff(s) M emoria Diskus 6-14 Dyhianto l 02:45: Herbie 56 albuterol 2017-0 Yes Mandaeism 3 mL Mem oria 6-13 Dyhianto l 00:00: 00 albuterol 2017-0 Yes Abena 3 mL Mem oria 6-13 North l 00:00: montelukast 2017-0 Yes Mandaeism 1 tab(s) Memoria 6-08 Dyhianto l 00:00: Ativan 2017-0 Yes Mandaeism 1 tab(s) Me moria 6-08 Dyhianto l 00:00: montelukast 2017-0 Yes Abena 1 tab(s) Memoria 6-08 North l 00:00: [place] Ativan 2017-0 Yes Abena 1 tab(s) Me moria 6-08 North l 00:00: [place] 00 Valtrex 2017-0 Yes Mandaeism 1 tab(s) M emoria 3-07 Dyhianto l 00:00: Herbie Celexa 2016- No Feras 1/2 tab(s) Delvis cleve 2-29 Elhajj l 04:10: Herbie 27 citalopram 2016- Yes 1/2 tab(s) [facility] (CELEXA) 20 2-28 [facility] - MG tablet 00:00: [address] Celexa 2015-06 Yes Mandaeism 1 tab Memor ia 2-28 Dyhianto l 00:00: Herbie 00 Celexa 2015-06 Yes Estelita 1 tab Memori a 2-28 Tisha l 00:00: Herbie 00 Celexa 2015-06 Yes Estelita 1 tab Memori a 2-28 Tisha l 00:00: Herbie 00 ibuprofen 2016-0 Yes Mandaeism 1 tab(s) Memoria 7-21 Dyhianto l 00:00: [place] 00 cyclobenzap 2016-0 Yes Mandaeism 1 tab(s) Memoria rine 7-21 Dyhianto l 00:00: Herbie 00 Tylenol 2015-0 Yes Mandaeism 1 tab(s) M emoria with 7-21 Dyhianto l Codeine #3 00:00: Herbie 00 Chlorphenir 2014-0 Yes Mandaeism 5 ml M emoria amine 4-18 Edward l Polistirex- 00:00: [place]hi[place] He rmann HYDROcodone 00 Polistirex ER Azithromyci 2013-0 Yes Mandaeism 2 tablets Memoria n 5 Day 4-18 Edward on the l Dose Pack 00:00: [place]hi[place] first day, [place] 00 then 1 tablet daily for 4 days Ventolin 2013-0 Yes Mandaeism inhale 2 Memoria HFA 4-18 Edward puffs by l 00:00: [place] mouth Herbie 00 every 4 to 6 hours as needed Dulera 2013-0 Yes Mandaeism 2 puff(s) M emoria 3-22 Edward l 00:00: [place]hi[place] Herbie 00 Montelukast Yes Mandaeism 1 tab(s) Memoria Sodium 09-05 Edward l 00:00: [place]hi[place] Herbie 00 Vyvanse Yes Mandaeism 1 cap(s) M emoria 09-05 Edward l 00:00: Dyhianto [place] 00 Vital Signs Vital Name Observation Time Observation Value Comments Source Systolic blood 2019-02-13 11:23:00 120 mm[Hg] [facility] Diastolic blood 2019-02-13 11:23:00 75 mm[Hg] [facility] Heart rate 2019-02-13 11:23:00 90 /min [facility] Body temperature 2019-02-13 11:23:00 36.67 Jinny [facility] Respiratory rate 2019-02-13 11:23:00 18 /min [facility] Body height 2019-02-13 07:25:[address] [facility] Body weight Measured 2019-02-13 07:25:00 77.111 kg [facility] BMI 2019-02-13 07:25:00 30.11 kg/m2 [facility] Oxygen saturation in 2019-02-13 07:25:00 96 /min [facility] Arterial blood by Medical Ce nter Pulse oximetry Systolic (mm Hg) 2019-01-08 21:15:00 Delvis rial [place] Heart Rate 2019-01-08 21:15:00 [facility] [place] Temperature Oral (F) 2019-01-08 21:15:00 98.5 F [facility] Herbie Weight 2019-01-08 21:15:00 [facility] Herbie Height 2019-01-08 21:15:00 [facility] [place] Diastolic (mm Hg) 2019-01-08 21:15:00 Mem orial Herbie Systolic (mm Hg) 2019-01-06 22:45:00 Delvis rial Herbie Heart Rate 2019-01-06 22:45:00 [facility] Herbie Temperature Oral (F) 2019-01-06 22:45:00 98.0 F [facility] Herbie Weight 2019-01-06 22:45:00 [facility] [place] Height 2019-01-06 22:45:00 [facility] [place] Diastolic (mm Hg) 2019-01-06 22:45:00 Mem orial [place] Systolic (mm Hg) 2017-09-13 21:30:00 Delvis rial Herbie Heart Rate 2017-09-13 21:30:00 Memorial Herbie Temperature Oral (F) 2017-09-13 21:30:00 98.5 F [facility] Herbie Weight 2017-09-13 21:30:00 [facility] [place] Height 2017-09-13 21:30:00 Memorial Herbie Diastolic (mm Hg) 2017-09-13 21:30:00 Mem orial Herbie Systolic (mm Hg) 2017-03-29 20:15:00 Delvis rial [place] Heart Rate 2017-03-29 20:15:00 Memorial Herbie Temperature Oral (F) 2017-03-29 20:15:00 99.0 F [facility] [place] Weight 2017-03-29 20:15:00 Memorial Herbie Height 2017-03-29 20:15:00 [facility] Herbie Diastolic (mm Hg) 2017-03-29 20:15:00 Mem orial Herbie Systolic (mm Hg) 2017-03-11 21:30:00 Delvis rial [place] Heart Rate 2017-03-11 21:30:00 [facility] [place] Temperature Oral (F) 2017-03-11 21:30:00 98.5 F [facility] [place] Weight 2017-03-11 21:30:00 [facility] Herbie Height 2017-03-11 21:30:00 [facility] Herbie Diastolic (mm Hg) 2017-03-11 21:30:00 Mem orial Herbie Systolic (mm Hg) 2016-11-22 20:00:00 Delvis rial [place] Heart Rate 2016-11-22 20:00:00 [facility] [place] Temperature Oral (F) 2016-11-22 20:00:00 98.6 F [facility] Herbie Weight 2016-11-22 20:00:00 [facility] Herbie Height 2016-11-22 20:00:00 [facility] [place] Diastolic (mm Hg) 2016-11-22 20:00:00 Mem orial [place] Systolic (mm Hg) 2016-01-05 23:15:00 Delvis rial [place] Heart Rate 2016-01-05 23:15:00 [facility] Herbie Temperature Oral (F) 2016-01-05 23:15:00 98.0 F [facility] [place] Weight 2016-01-05 23:15:00 [facility] [place] Height 2016-01-05 23:15:00 [facility] Herbie Diastolic (mm Hg) 2016-01-05 23:15:00 Mem orial [place] Systolic (mm Hg) 2013-10-02 20:30:00 Delvis rial [place] Heart Rate 2013-10-02 20:30:00 [facility] [place] Temperature Oral (F) 2013-10-02 20:30:00 98.2 F [facility] Herbie Weight 2013-10-02 20:30:00 [facility] [place] Height 2013-10-02 20:30:00 [facility] Herbie Diastolic (mm Hg) 2013-10-02 20:30:00 Mem orial Herbie Systolic (mm Hg) 2013-09-05 19:45:00 Delvis rial [place] Heart Rate 2013-09-05 19:45:00 [facility] [place] Temperature Oral (F) 2013-09-05 19:45:00 98.3 F [facility] Herbie Weight 2013-09-05 19:45:00 [facility] [place] Height 2013-09-05 19:45:00 [facility] Herbie Diastolic (mm Hg) 2013-09-05 19:45:00 Mem orial Herbie Procedures Procedure Date / Time Performed Performing Clinician Sourc e PERIPHERAL VASCULAR 2019-02-13 09:40:03 ProviderEliane [facility] REPORT - SCAN [facility] VENOUS DOPPLER LEGS 2019-02-13 08:53:00 Luis Garcia [facility] COMPREHENSIVE METABOLIC 2019-02-13 08:17:00 Luis Garcia [facility] SCREEN, URINE 2019-02-13 08:17:00 Luis Garcia [facility] CBC W/PLT COUNT & AUTO 2019-02-13 08:17:[address] [facility] Encounters Start End Encounter Admission Attending Care Care Encounter Source Date/Time Date/Time Type Type Clinicians Facility Department ID 2019-12-13 2019-12-13 Emergency E MHTW MHTW [id number] MHTW 15:55:00 15:55:00 2019-07-03 2019-07-03 Emergency E MHTW MHTW [id number] MHTW 12:52:00 12:52:00 2019-05-19 2019-05-19 Emergency E MHTW MHTW [id number] TW 15:19:00 15:19:00 2019-01-08 2019-01-08 [place] [id number] [facility]Clinic 16:15:00 16:15:00 Family Family alWork s Medicine Medicine 2019-01-06 2019-01-06 [place] [id number] [facility]inic 17:45:00 17:45:00 Family Family alWork s Medicine Medicine 2018-12-05 2018-12-05 [place] [id number] [facility]inic 12:40:00 12:40:00 Family Family alWork s Medicine Medicine 2018-04-04 2018-04-04 Outpatient [id number] eClinic 18:52:00 18:52:00 [id number] alWorks [id number] 2018-04-01 2018-04-01 [place] [id number] eClinic 12:24:00 12:24:00 Family Family alWork s Medicine Medicine 2018-02-12 2018-02-12 [place] [id number] eClinic 19:52:00 19:52:00 Family Family alWork s Medicine Medicine 2018-02-11 2018-02-11 [place] [id number] eClinic 09:06:00 09:06:00 Family Family alWork s Medicine Medicine 2018-01-18 2018-01-18 [place] [id number] eClinic 11:05:00 11:05:00 Family Family alWork s Medicine Medicine 2017-11-15 2017-11-15 [place] [id number] eClinic 14:13:00 14:13:00 Family Family alWork s Medicine Medicine 2017-09-17 2017-09-17 [place] [id number] eClinic 17:52:00 17:52:00 Family Family alWork s Medicine Medicine 2017-09-14 2017-09-14 [place] [id number] eClinic 10:11:00 10:11:00 Family Family alWork s Medicine Medicine 2017-09-13 2017-09-13 [place] [id number] eClinic 16:30:00 16:30:00 Family Family alWork s Medicine Medicine 2017-09-09 2017-09-09 [place] [id number] eClinic 12:10:00 12:10:00 Family Family alWork s Medicine Medicine 2017-07-15 2017-07-15 [place] [id number] eClinic 07:55:00 07:55:00 Family Family alWork s Medicine Medicine 2017-06-26 2017-06-26 [place] [id number] eClinic 12:25:00 12:25:00 Family Family alWork s Medicine Medicine 2017-04-25 2017-04-25 [place] [id number] eClinic 08:37:00 08:37:00 Family Family alWork s Medicine Medicine 2017-03-29 2017-03-29 [place] [id number] eClinic 15:15:00 15:15:00 Family Family alWork s Medicine Medicine 2017-03-26 2017-03-26 [place] [id number] eClinic 14:05:00 14:05:00 Family Family alWork s Medicine Medicine 2017-03-11 2017-03-11 [place] [id number] eClinic 16:30:00 16:30:00 Family Family alWork s Medicine Medicine 2017-03-07 2017-03-07 Outpatient [id number] eClinic 13:57:00 13:57:00 [id number] alWorks [id number] 2017-02-21 2017-02-21 [place] [id number] eClinic 14:32:00 14:32:00 Family Family alWork s Medicine Medicine 2016-11-25 2016-11-25 [place] [id number] eClinic 12:06:00 12:06:00 Family Family alWork s Medicine Medicine 2016-11-22 2016-11-22 [place] [id number] eClinic 15:00:00 15:00:00 Family Family alWork s Medicine Medicine 2016-11-21 2016-11-21 [place] [id number] eClinic 13:19:00 13:19:00 Family Family alWork s Medicine Medicine 2016-08-21 2016-08-21 Outpatient [facility] [id number] eClinic 09:34:00 09:34:00 Primary Primary alWork s Care,PPLC Care,PPLC 2016-06-08 2016-06-08 Outpatient [facility] [id number] eClinic 16:47:00 16:47:00 Primary Primary alWork s Care,PPLC Care,PPLC 2016-01-17 2016-01-17 Outpatient [facility] [id number] eClinic 14:59:00 14:59:00 Primary Primary alWork s Care,PPLC Care,PPLC 2016-01-14 2016-01-14 Outpatient [facility] [id number] eClinic 21:51:00 21:51:00 Primary Primary alWork s Care,PPLC Care,PPLC 2016-01-10 2016-01-10 Outpatient [facility] [id number] eClinic 13:24:00 13:24:00 Primary Primary alWork s Care,PPLC Care,PPLC 2016-01-06 2016-01-06 [facility] [id number] eClinic 13:37:00 13:37:00 Primary Primary alWork s Care,PPLC Care,PPLC 2016-01-05 2016-01-05 Outpatient [facility] [id number] eClinic 18:15:00 18:15:00 Primary Primary alWork s Care,PPLC Care,PPLC 2014-11-27 2014-11-27 [facility] [id number] eClinic 13:00:00 13:00:00 Primary Primary alWork s Care,PPLC Care,PPLC 2014-04-02 2014-04-02 Outpatient [facility] [id number] eClinic 15:10:00 15:10:00 Primary Primary alWork s Care,PPLC Care,PPLC 2014-04-02 2014-04-02 Outpatient [facility] [id number] eClinic 15:10:00 15:10:00 Primary Primary alWork s Care,PPLC Care,PPLC 2013-12-23 2013-12-23 Outpatient [facility] [id number] eClinic 18:21:00 18:21:00 Primary Primary alWork s Care,PPLC Care,PPLC 2013-10-02 2013-10-02 Outpatient [facility] [id number] eClinic 15:30:00 15:30:00 Primary Primary alWork s Care,PPLC Care,PPLC 2013-09-07 2013-09-07 Outpatient [facility] [id number] eClinic 08:47:00 08:47:00 Primary Primary alWork s Care,PPLC Care,PPLC 2013-09-05 2013-09-05 Outpatient [facility] [id number] eClinic 14:45:00 14:45:00 Primary Primary alWork s Care,PPLC Care,PPLC Results Test Description Test Time Test Comments Results Result Sourc e Comments VENOUS DOPPLER 2019-02-13 Reason for FINAL REPORT LEGS, BILATERAL 09:06:00 exam:->Leg PATIENT ID: Swelling Eval [id number] for DVT TECHNIQUE: Bilateral lower extremity venous ultrasound dated 02/13/2019 CLINICAL HISTORY: Leg swelling eval COMPARISON STUDY: Non FINDINGS: There is normal flow, compression, respiratory variation and augmentation in all the deep venous structures from the inguinal to popliteal region in both lower extremities. The posterior tibial and peroneal veins were also assessed and are unremarkable. Impression: No evidence of a DVT in either lower extremity. Signed: Jorge Luis Evans Verified Date/Time: 02/13/2019 09:06:28 Reading Location: [facility] Reading Room Venous doppler 2019-02-13 Interface, External [facility] legs bilateral 09:06:00 Ris In - 02/13/2019 - Medical 9:08 [facility] REPORT TECHNIQUE: Bilateral lower extremity venous ultrasound dated 02/13/2019 CLINICAL HISTORY: Leg swelling eval COMPARISON STUDY: Non FINDINGS: There is normal flow, compression, respiratory variation and augmentation in all the deep venous structures from the inguinal to popliteal region in both lower extremities. The posterior tibial and peroneal veins were also assessed and are unremarkable. Impression: No evidence of a DVT in either lower extremity. Signed: Jorge Luis Evans Verified Date/Time: 02/13/2019 09:06:28 Reading Location: [facility] Reading Room Comprehensive metabolic panel 2019-02-13 09:03:00 Test Item Value Reference Range Interpretation Comme nts Protein, Total (test code = 7.3 6.0- 8.5 gm/dL 2885-2) Albumin (test code = 29021-8) 3.8 g/dL 3.5-5 Alkaline Phosphatase (test 127 U/L 30-115 H code = 6768-6) Total Bilirubin (test code = 0.6 mg/dL 0.1-1.3 1974-) Sodium (test code = 2951-2) 136 meq/L 135-148 Potassium (test code = 2823-3) 3.5 meq/L 3.5-5.5 Chloride (test code = 2075-0) 98 meq/L 98-106 CO2 (test code = 8-9) 28 meq/L 20-31 BUN (test code = 3094-0) 11 mg/dL 10-26 Creatinine (test code = 0.79 mg/dL 0.5-1.2 2160-0) Glucose (test code = 2345-7) 132 mg/dL 70-110 H Calcium (test code = 15251-6) 9.0 mg/dL 8.5-10.5 AST (test code = 1920-8) 38 U/L 5-40 ALT (test code = 1742-6) 55 U/L 6-50 H EGFR (test code = 25275-9) 81 mL/min/1.73 sq m ESTIMATED GFR IS NOT ACCURATE CRE ATININE CLEARANCE IN SD EDICTING GLOMERULAR FILT RATION RATE. ESTIMATED GFR IS NOT APPLICABLE FOR DIALYSIS PATIEN TS. Lab Interpretation (test code Abnormal = 68411-6) [facility] [id number] 09:03:00 Test Item Value Reference Range Interpretation Comments TOTAL PROTEIN 7.3 gm/dL 6.0-8.5 (BEAKER) (test code = 770) ALBUMIN (BEAKER) 3.8 g/dL 3.5-5.0 (test code = 1145) ALKALINE PHOSPHATASE 127 U/L 30-115 H (BEAKER) (test code = 346) BILIRUBIN TOTAL 0.6 mg/dL 0.1-1.3 (BEAKER) (test code = 377) SODIUM (BEAKER) (test 136 meq/L 135-148 code = 381) POTASSIUM (BEAKER) 3.5 meq/L 3.5-5.5 (test code = 379) CHLORIDE (BEAKER) 98 meq/L 98-106 (test code = 382) CO2 (BEAKER) (test 28 meq/L 20-31 code = 355) BLOOD UREA NITROGEN 11 mg/dL 10-26 (BEAKER) (test code = 354) CREATININE (BEAKER) 0.79 mg/dL 0.50-1.20 (test code = 358) GLUCOSE RANDOM 132 mg/dL 70-110 H (BEAKER) (test code = 652) CALCIUM (BEAKER) 9.0 mg/dL 8.5-10.5 (test code = 697) AST (SGOT) (BEAKER) 38 U/L 5-40 (test code = 353) ALT (SGPT) (BEAKER) 55 U/L 6-50 H (test code = 347) EGFR (BEAKER) (test 81 mL/min/1.73 ESTIMA MINERVA GFR IS code = 1092) sq m NOT ACCURATE CREATININE CLEARANCE IN PREDICTING GLOMERULAR FILTRATION RATE . ESTIMATED GFR I S NOT APPLICABLE FOR DIALYSIS PATIEN TS. screen, [id number] 08:33:00 Test Item Value Reference Range Interpretation Comments Preg Test, Ur (test code = 2112-1) Negative [facility] [id number] 08:33:00 Test Item Value Reference Range Interpretation Comments TEST URINE (BEAKER) (test Negative code = 583) CBC with platelet count + automated [id number] 08:32:00 Test Item Value Reference Range Interpretation Comments WBC (test code = 6690-2) 5.8 4.0- 10.0 K/L RBC (test code = 789-8) 4.18 4.00- 5.00 M/L MCHC (test code = 786-4) 33.3 32.0- 36.0 GM/DL L Hematocrit (test code = 34.5 % 36-46 L 4544-3) MCV (test code = 787-2) 82.5 fL 82-99 MCH (test code = 785-6) 27.5 pg 27-33 RDW (test code = 788-0) 13.4 % 12-15 Platelets (test code = 141 150- 430 K/CU MM L 777-3) MPV (test code = 67317-2) 9.3 fL 6-11.5 MP V-Approximately 20% positive bi as due to method change. nRBC (test code = 413) 0 0- 0 /100 WBC % Neutros (test code = 50 % 429) % Lymphs (test code = 32 % 430) % Monos (test code = 431) 11 % % Eos (test code = 432) 6 % % Baso (test code = 437) 1 % # Neutros (test code = 2.89 1.80- 8.00 K/L 670) # Lymphs (test code = 1.83 1.48- 4.50 K/L 414) # Monos (test code = 415) 0.62 0.00- 1.30 K/L # Eos (test code = 416) 0.37 0.00- 0.50 K/L # Baso (test code = 417) 0.03 0.00- 0.20 K/L Immature 0 % 0-0 Granulocytes-Relative (test code = 2801) Lab Interpretation (test Abnormal code = 93902-4) [facility] W/PLT COUNT & AUTO [id number] 08:32:00 Test Item Value Reference Range Interpretation Comments WHITE BLOOD CELL COUNT 5.8 K/ L 4.0-10.0 (BEAKER) (test code = 775) RED BLOOD CELL COUNT 4.18 M/ L 4.00-5.00 (BEAKER) (test code = 761) HEMOGLOBIN (BEAKER) 11.5 GM/DL 12.0-15.5 L (test code = 410) HEMATOCRIT (BEAKER) 34.5 % 36.0-46.0 L (test code = 411) MEAN CORPUSCULAR VOLUME 82.5 fL 82.0-99.0 (BEAKER) (test code = 753) MEAN CORPUSCULAR 27.5 pg 27.0-33.0 HEMOGLOBIN (BEAKER) (test code = 751) MEAN CORPUSCULAR 33.3 GM/DL 32.0-36.0 HEMOGLOBIN CONC (BEAKER) (test code = 752) RED CELL DISTRIBUTION 13.4 % 12.0-15.0 WIDTH (BEAKER) (test code = 412) PLATELET COUNT (BEAKER) 141 K/CU MM 150-430 L (test code = 756) MEAN PLATELET VOLUME 9.3 fL 6.0-11.5 MPV-Yaakov roximately (BEAKER) (test code = 20% po sitive bias 754) due to method change. NUCLEATED RED BLOOD 0 /100 WBC 0-0 CELLS (BEAKER) (test code = 413) NEUTROPHILS RELATIVE 50 % PERCENT (BEAKER) (test code = 429) LYMPHOCYTES RELATIVE 32 % PERCENT (BEAKER) (test code = 430) MONOCYTES RELATIVE 11 % PERCENT (BEAKER) (test code = 431) EOSINOPHILS RELATIVE 6 % PERCENT (BEAKER) (test code = 432) BASOPHILS RELATIVE 1 % PERCENT (BEAKER) (test code = 437) NEUTROPHILS ABSOLUTE 2.89 K/ L 1.80-8.00 COUNT (BEAKER) (test code = 670) LYMPHOCYTES ABSOLUTE 1.83 K/ L 1.48-4.50 COUNT (BEAKER) (test code = 414) MONOCYTES ABSOLUTE 0.62 K/ L 0.00-1.30 COUNT (BEAKER) (test code = 415) EOSINOPHILS ABSOLUTE 0.37 K/ L 0.00-0.50 COUNT (BEAKER) (test code = 416) BASOPHILS ABSOLUTE 0.03 K/ L 0.00-0.20 COUNT (BEAKER) (test code = 417) IMMATURE 0 % 0-0 GRANULOCYTES-RELATIVE PERCENT (BEAKER) (test code = 2801) RESPIRATORY VIRUS PANEL [id number] 03:10:00 Test Item Value Reference Interpretation Comments Range RSV A PCR (test Negative Negative code = RSV A) RSV B PCR (test Negative Negative code = RSV B) INFLUENZA A (test Negative Negative code = FLUAPCR) INFLUENZA A SUBTYPE Negative Negative H1 (test code = FLUAH1) INFLUENZA A SUBTYPE Negative Negative H3 (test code = FLUAH3) INFLUENZA B (test Negative Negative code = FLUBPCR) PARAINFLUENZA TYPE Negative Negative 1 PCR (test code = PIF1) PARAINFLUENZA TYPE Negative Negative 2 PCR (test code = PIF2) PARAINFLUENZA TYPE Negative Negative 3 PCR (test code = PIF3) PARAINFLUENZA TYPE Negative Negative 4 PCR (test code = PIF4) RHINOVIRUS PCR Negative Negative (test code = RHINO) METAPNEUMOVIRUS PCR Negative Negative (test code = METAPNEU) ADENOVIRUS PCR Negative Negative (test code = ADENOPCR) BORDETELLA Negative Negative PERTUSSIS DNA PCR (test code = BORDPERDNA) B PARAPERTUSSIS BY Negative Negative PCR (test code = BPARAPCR) BORDETELLA HOLMESII Negative Negative Testing was performed (test code = using nucleic a tahir BORDHOLM) amplificationin cluding Bordetella parapertussis/b rochiseptic a, Bordetella h olmesii, and Bordetella pertussis. COMPLEMENT BETA C1 RVP Comment Comment Testing w as performed (test code = using nucleic a tahir COMBC1) amplificationin cluding influenza A, in fluenza A H1, influenza A H3,influenza B, RSV-A, RSV-B, Adenovir us, HumanMetapneumo virus, Parainfluenza 1 ,2,3 and 4, Rhinovirus, Bor detella parapertussis/b rochiseptic a, Bordetella h olmesii, and Bordetella pertussis. CBC W/AUTO [id number] 08:05:00 Test Item Value Reference Range Interpretation Comments WHITE BLOOD CELL (test code = 8.07 x10 3/uL 4.5-11.0 N WBC) RED BLOOD CELL (test code = 3.92 x10 6/uL 3.54-5.02 N RBC) HEMOGLOBIN (test code = HGB) 11.7 g/dL 11.0-15.0 N HEMATOCRIT (test code = HCT) 35.8 % 33.0-45.0 N MEAN CELL VOLUME (test code = 91.3 fL 81.0-99.0 N MCV) MEAN CELL HGB (test code = MCH) 29.8 pg 27.0-33.0 N MEAN CELL HGB CONCETRATION 32.7 g/dL 33.0-37.0 L (test code = MCHC) RED CELL DISTRIBUTION WIDTH CV 13.3 % 11.5-14.5 N (test code = RDW) RED CELL DISTRIBUTION WIDTH SD 43.8 fL 37.0-54.0 N (test code = RDW-SD) PLATELET COUNT (test code = 211 x10 3/uL 150-400 N PLT) MEAN PLATELET VOLUME (test code 10.6 fL 7.0-9.0 H = MPV) NEUTROPHIL % (test code = NT%) 57.5 % 56.0-77.0 N IMMATURE GRANULOCYTE % (test 0.7 % 0.0-2.0 N code = IG%) LYMPHOCYTE % (test code = LY%) 31.6 % 14.0-32.0 N MONOCYTE % (test code = MO%) 9.0 % 4.8-9.0 N EOSINOPHIL % (test code = EO%) 0.7 % 0.3-3.7 N BASOPHIL % (test code = BA%) 0.5 % 0.0-2.0 N NUCLEATED RBC % (test code = 0.0 % 0-0 N NRBC%) NEUTROPHIL # (test code = NT#) 4.63 x10 3/uL 2.0-7.6 N IMMATURE GRANULOCYTE # (test 0.06 x10 3/uL 0.00-0.03 H code = IG#) LYMPHOCYTE # (test code = LY#) 2.55 x10 3/uL 1.0-3.8 N MONOCYTE # (test code = MO#) 0.73 x10 3/uL 0.1-0.8 N EOSINOPHIL # (test code = EO#) 0.06 x10 3/uL 0.0-0.2 N BASOPHIL # (test code = BA#) 0.04 x10 3/uL 0.0-0.2 N NUCLEATED RBC # (test code = 0.00 x10 3/uL 0.0-0.1 N NRBC#) MANUAL DIFF REQUIRED (test code NO = MDIFF) COMPREHENSIVE METABOLIC [id number] 07:45:00 Test Item Value Reference Range Interpretation Comments SODIUM (test code = NA) 143 mEq/L 134-147 N POTASSIUM (test code = 3.4 mEq/L 3.4-5.0 N K) CHLORIDE (test code = 107 mEq/L 100-108 N CL) CARBON DIOXIDE (test 30 mEq/L 21-33 N code = CO2) ANION GAP (test code = 9 0-20 N GAP) GLUCOSE (test code = 85 mg/dL 70-110 GLU) BLOOD UREA NITROGEN 20 mg/dL 7-18 H (test code = BUN) GLOMERULAR FILTRATION 93.6 105-110 L Units of measure = RATE (test code = GFR) ml/mi n/1.73 m2 CREATININE (test code = 0.7 mg/dL 0.6-1.3 CREAT) TOTAL PROTEIN (test 7.0 g/dL 6.4-8.2 N code = PROT) ALBUMIN (test code = 3.30 g/dL 3.4-5.0 L ALB) CALCIUM (test code = 8.4 mg/dL 8.0-10.5 N CA) BILIRUBIN TOTAL (test 0.50 mg/dL 0.0-1.0 N code = BILT) SGOT/AST (test code = 16 IUnit/L 15-37 N AST) SGPT/ALT (test code = 36 IUnit/L 15-65 ALT) ALKALINE PHOSPHATASE 55 IUnit/L 20-125 N TOTAL (test code = ALKP) ARTERIAL BLOOD [id number] 10:41:00 Test Item Value Reference Range Interpretation Comments ARTERIAL BLOOD GAS PH (test code 7.555 7.35-7.45 H = PHA) ARTERIAL BLOOD GAS PCO2 (test 29.2 mmHg 35-45 L code = PCO2A) ARTERIAL BLOOD GAS PO2 (test code 53 mmHg 80-100 L = PO2A) BICARBONATE TOTAL HCO3 (test code 25.8 mmol/L 22.0-26.0 N = HCO3) BASE EXCESS (test code = STEVE) 4.0 mmol/L -4-4 N ABG O2 SATURATION (test code = 92 % 90-100 N SATA) ABG DELIVERY (test code = TAYLER) Cannula ABG TEMPERATURE (test code = 99.0 F TEMPA) ABG SITE (test code = SITEA) L Rad TCO2 ARTERIAL (test code = TCO2A) 27 PROCALCITONIN (PCT)2018-07-15 09:54:00 Test Item Value Reference Range Interpretation Comments PROCALCITONIN (PCT) < 0.05 ng/mL 0.00-0.05 N PROCALCI TONIN (PCT) (test code = PROCAL) NORMAL RANGE (ADULT): <0.05 NG/ML. * a concentration < 0.5 ng/mL represent s a low risk of severe sepsis and/or septic s hock.* a concentration >2 ng/mL represent s a high risk of se yaritza sepsis and/or s eptic shock.Neverthel ess, concentrations <0.5 ng/mL do not ex clude aninfection, on account of loca lized infections (withoutsystemi c signs) which ca n be associated with such lowconcentratio ns, or a systemic infe ction in its initials tages (< 6 hours). Furthermore, in creased procalcitoninca n occur without infecti on. PCT concentrations between 0.5and 2.0 ng/m L should be inter preted taking into acc ount thepatient's hi story. It is recommend ed to retest PCT with in6-24 hours if any concentrations <2 ng/mL are obtai gala. COMPREHENSIVE METABOLIC [id number] 06:42:00 Test Item Value Reference Range Interpretation Comments SODIUM (test code = NA) 140 mEq/L 134-147 N POTASSIUM (test code = 3.7 mEq/L 3.4-5.0 N K) CHLORIDE (test code = 106 mEq/L 100-108 N CL) CARBON DIOXIDE (test 30 mEq/L 21-33 N code = CO2) ANION GAP (test code = 8 0-20 N GAP) GLUCOSE (test code = 142 mg/dL 70-110 H GLU) BLOOD UREA NITROGEN 15 mg/dL 7-18 (test code = BUN) GLOMERULAR FILTRATION 138.1 105-110 H Units of measure = RATE (test code = GFR) ml/mi n/1.73 m2 CREATININE (test code = 0.5 mg/dL 0.6-1.3 L CREAT) TOTAL PROTEIN (test 6.2 g/dL 6.4-8.2 L code = PROT) ALBUMIN (test code = 2.90 g/dL 3.4-5.0 L ALB) CALCIUM (test code = 7.9 mg/dL 8.0-10.5 L CA) BILIRUBIN TOTAL (test 0.40 mg/dL 0.0-1.0 code = BILT) SGOT/AST (test code = 13 IUnit/L 15-37 L AST) SGPT/ALT (test code = 22 IUnit/L 15-65 N ALT) ALKALINE PHOSPHATASE 47 IUnit/L 20-125 N TOTAL (test code = ALKP) CBC W/AUTO [id number] 06:21:00 Test Item Value Reference Range Interpretation Comments WHITE BLOOD CELL (test code = 7.82 x10 3/uL 4.5-11.0 N WBC) RED BLOOD CELL (test code = 3.65 x10 6/uL 3.54-5.02 N RBC) HEMOGLOBIN (test code = HGB) 10.9 g/dL 11.0-15.0 L HEMATOCRIT (test code = HCT) 33.1 % 33.0-45.0 N MEAN CELL VOLUME (test code = 90.7 fL 81.0-99.0 N MCV) MEAN CELL HGB (test code = MCH) 29.9 pg 27.0-33.0 N MEAN CELL HGB CONCETRATION 32.9 g/dL 33.0-37.0 L (test code = MCHC) RED CELL DISTRIBUTION WIDTH CV 12.9 % 11.5-14.5 N (test code = RDW) RED CELL DISTRIBUTION WIDTH SD 42.4 fL 37.0-54.0 N (test code = RDW-SD) PLATELET COUNT (test code = 176 x10 3/uL 150-400 N PLT) MEAN PLATELET VOLUME (test code 10.8 fL 7.0-9.0 H = MPV) NEUTROPHIL % (test code = NT%) 87.2 % 56.0-77.0 H IMMATURE GRANULOCYTE % (test 0.6 % 0.0-2.0 N code = IG%) LYMPHOCYTE % (test code = LY%) 9.0 % 14.0-32.0 L MONOCYTE % (test code = MO%) 3.2 % 4.8-9.0 L EOSINOPHIL % (test code = EO%) 0.0 % 0.3-3.7 L BASOPHIL % (test code = BA%) 0.0 % 0.0-2.0 N NUCLEATED RBC % (test code = 0.0 % 0-0 N NRBC%) NEUTROPHIL # (test code = NT#) 6.82 x10 3/uL 2.0-7.6 N IMMATURE GRANULOCYTE # (test 0.05 x10 3/uL 0.00-0.03 H code = IG#) LYMPHOCYTE # (test code = LY#) 0.70 x10 3/uL 1.0-3.8 L MONOCYTE # (test code = MO#) 0.25 x10 3/uL 0.1-0.8 N EOSINOPHIL # (test code = EO#) 0.00 x10 3/uL 0.0-0.2 N BASOPHIL # (test code = BA#) 0.00 x10 3/uL 0.0-0.2 N NUCLEATED RBC # (test code = 0.00 x10 3/uL 0.0-0.1 N NRBC#) MANUAL DIFF REQUIRED (test code NO = MDMARIO ALBERTO) - XR CHEST 1 [id number] 05:53:00 FAX: Klarissa Quintero [phone] [place]: St: ADM FAX: Charlee Marroquin MD Name: MEE PRIETO [facility] : 1980 Age/S: 38/F [address] [place] [address] Unit #: [id number] Loc: G.M316 [place] [address] Phys: Charlee Marroquin MD Acct: [id number] Dis Date: Status: ADM IN PHONE #: [phone] Exam Date: 07/15/2018 0546 FAX #: [phone] Reason: intubated/vented patient EXAMS: CPT CODE: [id number] XR CHEST 1 V 28790 EXAM: CR, XR chest one view: 07/15/2018, 0506 hours HISTORY: intubated/vented patientTECHNIQUE: 1 view of the chest. COMPARISON: 07/14/2018, 0506 hours FINDINGS: Trachea is midline. Heart is normal in size. Pulmonary vascularity is unremarkable. Mild bibasilar atelectasis seen. There is no airspace consolidation, pleural effusion or pneumothorax. No significant osseous abnormalities are seen. IMPRESSION: Mild bibasilar atelectasis. SL: [[id number]-H] at 0518 Reported and signed by: Curtis Mcclure M.D. CC: Klarissa Quintero MD; Charlee Marroquin MD Technologist: Ingris Rodríguez, RT(R); Ezio Torres RT(R) [facility] Date/Time/By: 07/15/2018 (0553) : By: [email or web address] Orig Print D/T: S: 07/15/2018 (0556) PAGE 1 Signed Report- CT ANGIO [id number] 13:10:00 Name: MEE PRIETO [facility] : 1980 Age/S: 38 / F [address] [place] [address] Unit #: [id number] Loc: Rajeev [id number] Phys: Charlee Marroquin MD Acct: [id number] Dis Date: Status: ADM IN PHONE #: [phone] Exam Date: 07/14/2018 1222 FAX #: [phone] Reason: r/o pulmonary embolism EXAMS: CPTCODE: [id number] CT ANGIO CHEST 28520 EXAM: CTA CH EST WITH CONTRAST DATE: 07/14/2018 8:57 AM : 1980; Age: 38 years y/o Female INDICATION: Respiratory failure r/o pulmonary embolism COMPARISON: None TECHNIQUE: Volumetric CT of the chest is acquired during pulmonary arterial phase following intravenous administration of contrast. Coronal and sagittal reconstructions were created. Three-dimensional or MIP reconstructions of the pulmonary arterial system were created at an independent workstation. IV Contrast: 100 mL Isovue DLP: 274 mGy-cm CT imaging performed at this location utilizes radiation dose optimization techniques which in clude one or more of the following: -Automated exposure control - Adjustment of the mA and/or kV according to patient size -Use of iterative reconstruction technique FINDINGS: Lower neck: 7 mm low-attenuation right thyroid nodule. Endotracheal tubetip is above the eliana. NG tube tip is not seen and tube can be seen up to the stomach. Lymph Nodes: There is no mediastinal or hilar lymphadenopathy. No axillary lymphadenopathy. Heart, pericardium and aorta: : The heart is normal in size. No pericardial effusion. Thoracic aorta is normal.. Pulmonary emboli: None. No right heart strain. Lungs: Atelectasis and/or infiltrates are seen within the bilateral lung bases with right more than left. Limited evaluation of lungs due to breathing changes. Some groundglass changes within the bilateral dependent upper lungs. Minimal emphysema. No pleural effusions. The central airway is patent. Upper abdomen: Unremarkable. Soft tissues: Normal. PAGE 1 Signed Report (CONTINUED) Name: TIMOTHY,MEE [facility] : 1980 Age/S: 38 / F [address] [place] [address] Blvd Unit #: [id number] Loc: [place] [address] Phys: Charlee Marroquin MD Acct: [id number] Dis Date: Status: ADM IN PHONE #: [phone] Exam Date: 07/14/2018 1222 FAX #: [phone] Reason: r/o pulmonary embolism EXAMS: CPT CODE: [id number] CT ANGIO CHEST 33262 <Continued> Bones: No acute abnormality. Age-related degenerative findings. IMPRESSION: 1. No pulmonary embolism. 2. Atelectasis and/or infiltrates are seen within the bilateral lung bases with right more than left. Some groundglass changes within the bilateral dependent upper lungs, which may represent some atelectasis and/or infiltrates. SL: [id number] at 1310 Reported and signed by: lOya Baltazar D.O. CC: Klarissa Quintero MD; Charlee Marroquin MD Technologist:Kieran Givens, RT(R)(CT) CTDI: DLP: Trnscb Date/Time: 07/14/2018 (1310) [email or web address] Orig Print D/T: S: 07/14/2018 (8233) CTDI: DLP: PAGE 2 Signed Report PROCALCITONIN (PCT)2018-07-14 10:22:00 Test Item Value Reference Range Interpretation Comments PROCALCITONIN (PCT) < 0.05 ng/mL 0.00-0.05 N PROCALCI TONIN (PCT) (test code = PROCAL) NORMAL RANGE (ADULT): <0.05 NG/ML. * a concentration < 0.5 ng/mL represent s a low risk of severe sepsis and/or septic s hock.* a concentration >2 ng/mL represent s a high risk of se yaritza sepsis and/or s eptic shock.Neverthel ess, concentrations <0.5 ng/mL do not ex clude aninfection, on account of loca lized infections (withoutsystemi c signs) which ca n be associated with such lowconcentratio ns, or a systemic infe ction in its initials tages (< 6 hours). Furthermore, in creased procalcitoninca n occur without infecti on. PCT concentrations between 0.5and 2.0 ng/m L should be inter preted taking into acc ount thepatient's hi story. It is recommend ed to retest PCT with in6-24 hours if any concentrations <2 ng/mL are obtai gala. - XR CHEST 1 [id number] 06:22:00 FAX: LeonCyr Soub [phone] [place]: St: ADM FAX: Charlee Marroquin MD Name: MEE PRIETO [facility] : 1980 Age/S: 38/F [address] [place] [address] Unit #: [id number] Loc: G.M316 [place] [address] Phys: Charlee Marroquin MD Acct: [id number] Dis Date: Status: ADM IN PHONE #: [phone] Exam Date: 07/14/2018 0549 FAX #: [phone] Reason: intubated/vented patient EXAMS: CPT CODE: [id number] XR CHEST 1 V [id number] Chest, single view dated 07/14/2018. HISTORY: Asthma exacerbation. Intubated/ventilated patient. Comparison is made to a prior study dated 07/13/2018. Endotracheal tube is identified with the tip projecting approximately 2.5 cm above the eliana. A nasogastric tube is identified with the tip projecting in the gastric antrum. The heart is normal in size.The cardiomediastinal shadow is stable. Mild atelectasis is suspected in the right base. Thelungs otherwise appear clear. The pulmonary vasculature is normal in caliber. No acute pleural space abnormalities are identified. IMPRESSION: 1. Mild right basilar atelectasis. There is no additional evidence of acute cardiopulmonary disease. SL: 131 at 0622 Reported and signed by: Jorge Luis Evans M.D. CC: Klarissa Quintero MD; Charlee Marroquin MD Technologist: RT [place](R) Trnscrd Date/Time/By: 07/14/2018 (621) : By: Katie Orig Print D/T: S: 07/14/2018 (0632) PAGE 1 Signed ReportBASIC METABOLIC [id number] 05:48:00 Test Item Value Reference Range Interpretation Comments SODIUM (test code = NA) 140 mEq/L 134-147 N POTASSIUM (test code = 4.0 mEq/L 3.4-5.0 N K) CHLORIDE (test code = 109 mEq/L 100-108 H CL) CARBON DIOXIDE (test 24 mEq/L 21-33 N code = CO2) ANION GAP (test code = 11 0-20 N GAP) GLUCOSE (test code = 142 mg/dL 70-110 H GLU) BLOOD UREA NITROGEN 11 mg/dL 7-18 (test code = BUN) GLOMERULAR FILTRATION 138.1 105-110 H Units of measure = RATE (test code = GFR) ml/mi n/1.73 m2 CREATININE (test code = 0.5 mg/dL 0.6-1.3 L CREAT) CALCIUM (test code = 7.9 mg/dL 8.0-10.5 L CA) [id number] 05:48:00 Test Item Value Reference Range Interpretation Comments PHOSPHOROUS (test code = PHOS) 1.6 mg/dL 2.5-4.9 L [id number] 05:48:00 Test Item Value Reference Range Interpretation Comments MAGNESIUM (test code = MAG) 2.10 mg/dL 1.8-2.4 N ARTERIAL BLOOD [id number] 05:37:00 Test Item Value Reference Range Interpretation Comments ARTERIAL BLOOD GAS PH 7.394 7.35-7.45 N (test code = PHA) ARTERIAL BLOOD GAS 38.6 mmHg 35-45 N PCO2 (test code = PCO2A) ARTERIAL BLOOD GAS PO2 66 mmHg 80-100 L (test code = PO2A) BICARBONATE TOTAL HCO3 23.6 mmol/L 22.0-26.0 N (test code = HCO3) BASE EXCESS (test code -1.0 mmol/L -4-4 N = STEVE) ABG O2 SATURATION 93 % 90-100 N (test code = SATA) FIO2 (test code = 60 % FIO2A) ABG DELIVERY (test Vent code = TAYLER) ABG VENT MODE (test AC v con code = MODEA) ABG VENT RESP RATE 16 /MIN (test code = RRA) ABG TIDAL VOLUME (test 450 ml code = TVA) ABG PEEP (test code = 8 cmH2O Perfor med by PEEPA) certified opera tor at [facility] ABG TEMPERATURE (test 98.0 F code = TEMPA) ABG SITE (test code = Art line SITEA) PREDICTED AA GRADIENT 99 (test code = AP) PREDICTED PO2 (test 282 code = OP) a/A RATIO (test code = 0.17 RATIO) TCO2 ARTERIAL (test 25 code = TCO2A) A-A GRADIENT (test 316 code = AAGRADE) CBC W/AUTO [id number] 05:29:00 Test Item Value Reference Range Interpretation Comments WHITE BLOOD CELL (test code = 6.95 x10 3/uL 4.5-11.0 N WBC) RED BLOOD CELL (test code = 3.68 x10 6/uL 3.54-5.02 N RBC) HEMOGLOBIN (test code = HGB) 10.9 g/dL 11.0-15.0 L HEMATOCRIT (test code = HCT) 33.1 % 33.0-45.0 N MEAN CELL VOLUME (test code = 89.9 fL 81.0-99.0 N MCV) MEAN CELL HGB (test code = MCH) 29.6 pg 27.0-33.0 N MEAN CELL HGB CONCETRATION 32.9 g/dL 33.0-37.0 L (test code = MCHC) RED CELL DISTRIBUTION WIDTH CV 12.6 % 11.5-14.5 N (test code = RDW) RED CELL DISTRIBUTION WIDTH SD 41.3 fL 37.0-54.0 N (test code = RDW-SD) PLATELET COUNT (test code = 159 x10 3/uL 150-400 N PLT) MEAN PLATELET VOLUME (test code 10.6 fL 7.0-9.0 H = MPV) NEUTROPHIL % (test code = NT%) 85.2 % 56.0-77.0 H IMMATURE GRANULOCYTE % (test 0.3 % 0.0-2.0 N code = IG%) LYMPHOCYTE % (test code = LY%) 12.2 % 14.0-32.0 L MONOCYTE % (test code = MO%) 2.2 % 4.8-9.0 L EOSINOPHIL % (test code = EO%) 0.0 % 0.3-3.7 L BASOPHIL % (test code = BA%) 0.1 % 0.0-2.0 N NUCLEATED RBC % (test code = 0.0 % 0-0 N NRBC%) NEUTROPHIL # (test code = NT#) 5.92 x10 3/uL 2.0-7.6 N IMMATURE GRANULOCYTE # (test 0.02 x10 3/uL 0.00-0.03 N code = IG#) LYMPHOCYTE # (test code = LY#) 0.85 x10 3/uL 1.0-3.8 L MONOCYTE # (test code = MO#) 0.15 x10 3/uL 0.1-0.8 N EOSINOPHIL # (test code = EO#) 0.00 x10 3/uL 0.0-0.2 N BASOPHIL # (test code = BA#) 0.01 x10 3/uL 0.0-0.2 N NUCLEATED RBC # (test code = 0.00 x10 3/uL 0.0-0.1 N NRBC#) MANUAL DIFF REQUIRED (test code NO = MDIFF) ARTERIAL BLOOD [id number] 20:24:00 Test Item Value Reference Range Interpretation Comments ARTERIAL BLOOD GAS PH 7.333 7.35-7.45 L (test code = PHA) ARTERIAL BLOOD GAS 42.2 mmHg 35-45 N PCO2 (test code = PCO2A) ARTERIAL BLOOD GAS PO2 88 mmHg 80-100 N (test code = PO2A) BICARBONATE TOTAL HCO3 22.5 mmol/L 22.0-26.0 N (test code = HCO3) BASE EXCESS (test code -4.0 mmol/L -4-4 N = STEVE) ABG O2 SATURATION 96 % 90-100 N (test code = SATA) FIO2 (test code = 60 % FIO2A) ABG DELIVERY (test Vent code = TAYLER) ABG VENT MODE (test AC v con code = MODEA) ABG VENT RESP RATE 16 /MIN (test code = RRA) ABG TIDAL VOLUME (test 450 ml code = TVA) ABG PEEP (test code = 8 cmH2O Perfor med by PEEPA) certified opera tor at [facility] ABG TEMPERATURE (test 98.0 F code = TEMPA) ABG SITE (test code = Art line SITEA) PREDICTED AA GRADIENT 98 (test code = AP) PREDICTED PO2 (test 279 code = OP) a/A RATIO (test code = 0.23 RATIO) TCO2 ARTERIAL (test 24 code = TCO2A) A-A GRADIENT (test 289 code = AAGRADE) PROCALCITONIN (PCT)2018-07-13 15:11:00 Test Item Value Reference Range Interpretation Comments PROCALCITONIN (PCT) < 0.05 ng/mL 0.00-0.05 N PROCALCI TONIN (PCT) (test code = PROCAL) NORMAL RANGE (ADULT): <0.05 NG/ML. * a concentration < 0.5 ng/mL represent s a low risk of severe sepsis and/or septic s hock.* a concentration >2 ng/mL represent s a high risk of se yaritza sepsis and/or s eptic shock.Neverthel ess, concentrations <0.5 ng/mL do not ex clude aninfection, on account of loca lized infections (withoutsystemi c signs) which ca n be associated with such lowconcentratio ns, or a systemic infe ction in its initials tages (< 6 hours). Furthermore, in creased procalcitoninca n occur without infecti on. PCT concentrations between 0.5and 2.0 ng/m L should be inter preted taking into acc ount thepatient's hi story. It is recommend ed to retest PCT with in6-24 hours if any concentrations <2 ng/mL are obtai gala. - XR ABDOMEN 1V (KUB)2018-07-13 14:33:00 FAX: Klarissa Quintero [facility] [phone] [place]: St: ADM FAX: Charlee Marroquin MD Name: MEE PRIETO Lake : 1980 Age/S: 38/F [address] [place] [address] Unit #: [id number] Loc: G.M316 [place] [address] Phys: Charlee Marroquin MD Acct: [id number] Dis Date: Status: ADM IN PHONE #: [phone] Exam Date: 07/13/2018 1412 FAX #: [phone] Reason: NGT Placement EXAMS: CPT CODE: [id number] XR ABDOMEN 1V (KUB) [id number] Portable abdomen performed July 13, 2018 1358 hours. Comparison: July 13, 2018 0512 hours. Clinical history: NG tube placement Discussion: Single portable abdomen submitted. NG tube is seen with the tip passing below the diaphragm and resting over the midline central abdomen. Paucity of bowel gas. Cholecystectomy clips are seen in the right upper quadrant. Osseous structures are within normal limits, given mild motion blurIMPRESSION: NG tube is seen with the tip passing below the diaphragm and resting over the mid central abdomen at 1432 Reported and signed by: Mouna Cotto M.D. CC: Klarissa Quintero MD; Charlee Marroquin MD Technologist: RT Fannie(Jae) Trnscrd Date/Time/By: 07/13/2018 (8293) : By: [email or web address] Orig Print D/T: S: 07/13/2018 (7115) PAGE 1 Signed ReportDRUGS OF ABUSE SCREEN [id number] 13:42:00 Test Item Value Reference Range Interpretation Comments URN COCAINE (test code NEGATIVE NEGATIVE = COCAURN) URN CANNABINOIDS (test NEGATIVE NEGATIVE code = CANNABURN) URN AMPHETAMINE (test NEGATIVE NEGATIVE code = AMPHETURN) URN BARBITURATE (test NEGATIVE NEGATIVE code = BARBITURN) URN BENZODIAZEPINE NEGATIVE NEGATIVE Cut-off v alue:200 (test code = BENZOURN) ng/mL URN OPIATES (test code POSITIVE NEGATIVE A Cut-o ff value:2000 = OPIATURN) ng/mL URN PHENCYCLIDINE (PCP) NEGATIVE NEGATIVE Cuto ffs:Barbiturates (test code = PHENCURN) 200 ng/mLBenzodiaze pines 200 ng/ mLTHC Cannabinoids 50 ng/mLOpiates(Mo rphine) 2000 ng/mLAmphetamin e 1000 ng/mLCocaine 300 ng/ mLPCP phencyclidine 25 ng/mL Unconf irmed screening resul ts shouldnot be us ed for non-medical pur poses. DRUGS OF ABUSE SCREEN [id number] 13:32:00 Test Item Value Reference Range Interpretation Comments URN COCAINE (test code NEGATIVE NEGATIVE = COCAURN) URN CANNABINOIDS (test NEGATIVE NEGATIVE code = CANNABURN) URN AMPHETAMINE (test NEGATIVE NEGATIVE code = AMPHETURN) URN BARBITURATE (test NEGATIVE NEGATIVE code = BARBITURN) URN BENZODIAZEPINE NEGATIVE NEGATIVE Cut-off v alue:200 (test code = BENZOURN) ng/mL URN OPIATES (test code NEGATIVE = OPIATURN) URN PHENCYCLIDINE (PCP) NEGATIVE NEGATIVE Cuto ffs:Barbiturates (test code = PHENCURN) 200 ng/mLBenzodiaze pines 200 ng/ mLTHC Cannabinoids 50 ng/mLOpiates(Mo rphine) 2000 ng/mLAmphetamin e 1000 ng/mLCocaine 300 ng/ mLPCP phencyclidine 25 ng/mL Unconf irmed screening resul ts shouldnot be us ed for non-medical pur poses. RESPIRATORY VIRUS PANEL [id number] 12:28:00 Test Item Value Reference Interpretation Comments Range RSV A PCR (test Negative Negative code = RSV A) RSV B PCR (test Negative Negative code = RSV B) INFLUENZA A (test Negative Negative code = FLUAPCR) INFLUENZA A SUBTYPE Negative Negative H1 (test code = FLUAH1) INFLUENZA A SUBTYPE Negative Negative H3 (test code = FLUAH3) INFLUENZA B (test Negative Negative code = FLUBPCR) PARAINFLUENZA TYPE Negative Negative 1 PCR (test code = PIF1) PARAINFLUENZA TYPE Negative Negative 2 PCR (test code = PIF2) PARAINFLUENZA TYPE Negative Negative 3 PCR (test code = PIF3) PARAINFLUENZA TYPE Negative Negative 4 PCR (test code = PIF4) RHINOVIRUS PCR Negative Negative (test code = RHINO) METAPNEUMOVIRUS PCR Negative Negative (test code = METAPNEU) ADENOVIRUS PCR Negative Negative (test code = ADENOPCR) BORDETELLA Negative Negative PERTUSSIS DNA PCR (test code = BORDPERDNA) B PARAPERTUSSIS BY Negative Negative PCR (test code = BPARAPCR) BORDETELLA HOLMESII Negative Negative Testing was performed (test code = using nucleic a tahir BORDHOLM) amplificationin cluding Bordetella parapertussis/b rochiseptic a, Bordetella h olmesii, and Bordetella pertussis. COMPLEMENT BETA C1 RVP Comment Comment Testing w as performed (test code = using nucleic a tahir COMBC1) amplificationin cluding influenza A, in fluenza A H1, influenza A H3,influenza B, RSV-A, RSV-B, Adenovir us, HumanMetapneumo virus, Parainfluenza 1 ,2,3 and 4, Rhinovirus, Bor detella parapertussis/b rochiseptic a, Bordetella h olmesii, and Bordetella pertussis. PROTHROMBIN [id number] 11:32:00 Test Item Value Reference Range Interpretation Comments PROTHROMBIN TIME 11.5 SECONDS 9.3-12.9 N PATIENT (test code = PTP) INTERNATIONAL NORMAL 1.0 0.8-1.2 N TARGET RATIO (test code = INR BY IN DICATION INR) Indication INR1. Prophyl axis of venous thrombos is 2.0 - 3. 0 (orthopedic camilo edelmira), Prophylaxis of venous thrombos is (other than hig h-risk surgery), Michelle tment of Deep Vein Thrombosis/Pulm onary Embolism, Preve ntion of systemic emb olism - Tissue heart va lves, Acute Myocardia l Infarction (to prevent systemic embo lism), Valvular heart disease, Atri al Fibrillation, Bileaflet mecha nical valve in aortic position.2. Mec hanical prosthetic valv es (high risk), 2.5 - 3.5 Presence of Lupus Anticoagu lant or Antiphospholi pid Antibodies, Pre vention of systemic e mbolism - Acute Myocard ial Infarction (t o prevent recurre nt infarct). THROMBOPLASTIN TIME [id number] 11:32:00 Test Item Value Reference Range Interpretation Comments THROMBOPLASTIN TIME 32.0 Seconds 25.0-39.5 N Ther apeutic PARTIAL (test code = Range: 61.8-83.8 PTT) Sec Effective 07/15/2013 ARTERIAL BLOOD [id number] 11:30:00 Test Item Value Reference Range Interpretation Comments ARTERIAL BLOOD GAS PH 7.308 7.35-7.45 L (test code = PHA) ARTERIAL BLOOD GAS 47.3 mmHg 35-45 H PCO2 (test code = PCO2A) ARTERIAL BLOOD GAS PO2 70 mmHg 80-100 L (test code = PO2A) BICARBONATE TOTAL HCO3 23.7 mmol/L 22.0-26.0 N (test code = HCO3) BASE EXCESS (test code -3.0 mmol/L -4-4 N = STEVE) ABG O2 SATURATION 92 % 90-100 N (test code = SATA) FIO2 (test code = 40 % FIO2A) ABG DELIVERY (test Vent code = TAYLER) ABG VENT MODE (test AC v con code = MODEA) ABG VENT RESP RATE 16 /MIN (test code = RRA) ABG TIDAL VOLUME (test 450 ml code = TVA) ABG PEEP (test code = 5 cmH2O Perfor med by PEEPA) certified opera tor at [facility] ABG TEMPERATURE (test 98.6 F code = TEMPA) ABG SITE (test code = L Rad SITEA) PREDICTED AA GRADIENT 59 (test code = AP) PREDICTED PO2 (test 169 code = OP) a/A RATIO (test code = 0.31 RATIO) TCO2 ARTERIAL (test 25 code = TCO2A) A-A GRADIENT (test 159 code = AAGRADE) COMPREHENSIVE METABOLIC [id number] 10:23:00 Test Item Value Reference Range Interpretation Comments SODIUM (test code = NA) 138 mEq/L 134-147 N POTASSIUM (test code = 4.0 mEq/L 3.4-5.0 N K) CHLORIDE (test code = 107 mEq/L 100-108 N CL) CARBON DIOXIDE (test 28 mEq/L 21-33 N code = CO2) ANION GAP (test code = 7 0-20 N GAP) GLUCOSE (test code = 100 mg/dL 70-110 N GLU) BLOOD UREA NITROGEN 18 mg/dL 7-18 N (test code = BUN) GLOMERULAR FILTRATION 93.6 105-110 L Units of measure = RATE (test code = GFR) ml/mi n/1.73 m2 CREATININE (test code = 0.7 mg/dL 0.6-1.3 N CREAT) TOTAL PROTEIN (test 6.5 g/dL 6.4-8.2 N code = PROT) ALBUMIN (test code = 3.30 g/dL 3.4-5.0 L ALB) CALCIUM (test code = 7.6 mg/dL 8.0-10.5 L CA) BILIRUBIN TOTAL (test 0.90 mg/dL 0.0-1.0 N code = BILT) SGOT/AST (test code = 19 IUnit/L 15-37 N AST) SGPT/ALT (test code = 21 IUnit/L 15-65 N ALT) ALKALINE PHOSPHATASE 55 IUnit/L 20-125 N TOTAL (test code = ALKP) [id number] 10:23:00 Test Item Value Reference Range Interpretation Comments PHOSPHOROUS (test code = PHOS) 2.6 mg/dL 2.5-4.9 N [id number] 10:23:00 Test Item Value Reference Range Interpretation Comments MAGNESIUM (test code = MAG) 2.00 mg/dL 1.8-2.4 N [id number] 10:23:00 Test Item Value Reference Range Interpretation Comments TROPONIN-I < 0.015 ng/mL 0.000-0.045 N Negative: <= (test code = 0.045 Positive: TROPI) >= 0.046 Correl ation with serial results, other cardiac markers andclinical findings is nec essary to determine the clinicalsignifi cance of this result. Results using different metho dologies should not be c omparedto one another as charli titative results may blanca y by method. LACTIC [id number] 10:23:00 Test Item Value Reference Range Interpretation Comments LACTIC ACID (test code = LACT) 1.0 mmol/L 0.4-1.9 N UR HCG [id number] 10:05:00 Test Item Value Reference Range Interpretation Comments UR HCG QUAL (test code = HCGQLU) NEGATIVE NEGATIVE URINALYSIS [id number] 10:00:00 Test Item Value Reference Range Interpretation Comments UA COLOR (test code = COLU) YELLOW YEL/STRAW UA APPEARANCE (test code = APPU) SL CLOUDY CLEAR UA GLUCOSE DIPSTICK (test code = NEGATIVE NEGATIVE DGLUU) UA BILIRUBIN DIPSTICK (test code NEGATIVE NEGATIVE = BILU) UA KETONE DIPSTICK (test code = NEGATIVE NEGATIVE KETU) UA SPECIFIC GRAVITY (test code = 1.024 1.005-1.030 N SGU) UA BLOOD DIPSTICK (test code = NEGATIVE NEGATIVE ANN) UA PH DIPSTICK (test code = VIRGIL) 5.0 5.0-7.0 N UA PROTEIN DIPSTICK (test code = NEGATIVE NEGATIVE PROU) UA UROBILINIOGEN DIPSTICK (test 0.2 mg/dL 0.2-1.0 code = URO) UA NITRITE DIPSTICK (test code = NEGATIVE NEGATIVE ANGELES) UA LEUKOCYTE ESTERASE DIPSTICK NEGATIVE NEGATIVE (test code = LEUU) UA WBC (test code = WBCU) 0-3 WBC/HPF 0-3 UA RBC (test code = RBCU) 0-3 RBC/HPF 0-3 UA BACTERIA (test code = BACU) TRACE /HPF NONE SEEN UA SQUAMOUS CELLS (test code = 0-5 /HPF NONE SEEN SQU) UA TRANSITIONAL CELLS (test code TRACE /HPF NONE SEEN = TRANU) UA MUCUS (test code = MUCU) 2+ /LPF NONE SEEN A UA CULT [id number] 10:00:00 Test Item Value Reference Range Interpretation Comments UA CULTURE NEEDED? NO, WBC<10 Culture Chk Criteria not met, (test code = Criteria Urine Culture UACULT) cancelled. CBC W/AUTO [id number] 09:53:00 Test Item Value Reference Range Interpretation Comments WHITE BLOOD CELL (test code = 8.21 x10 3/uL 4.5-11.0 WBC) RED BLOOD CELL (test code = 3.85 x10 6/uL 3.54-5.02 N RBC) HEMOGLOBIN (test code = HGB) 11.6 g/dL 11.0-15.0 N HEMATOCRIT (test code = HCT) 35.1 % 33.0-45.0 N MEAN CELL VOLUME (test code = 91.2 fL 81.0-99.0 N MCV) MEAN CELL HGB (test code = MCH) 30.1 pg 27.0-33.0 N MEAN CELL HGB CONCETRATION 33.0 g/dL 33.0-37.0 N (test code = MCHC) RED CELL DISTRIBUTION WIDTH CV 13.0 % 11.5-14.5 N (test code = RDW) RED CELL DISTRIBUTION WIDTH SD 42.8 fL 37.0-54.0 N (test code = RDW-SD) PLATELET COUNT (test code = 174 x10 3/uL 150-400 N PLT) MEAN PLATELET VOLUME (test code 10.1 fL 7.0-9.0 H = MPV) NEUTROPHIL % (test code = NT%) 60.8 % 56.0-77.0 N IMMATURE GRANULOCYTE % (test 0.5 % 0.0-2.0 N code = IG%) LYMPHOCYTE % (test code = LY%) 16.3 % 14.0-32.0 N MONOCYTE % (test code = MO%) 6.3 % 4.8-9.0 N EOSINOPHIL % (test code = EO%) 15.7 % 0.3-3.7 H BASOPHIL % (test code = BA%) 0.4 % 0.0-2.0 N NUCLEATED RBC % (test code = 0.0 % 0-0 N NRBC%) NEUTROPHIL # (test code = NT#) 4.99 x10 3/uL 2.0-7.6 N IMMATURE GRANULOCYTE # (test 0.04 x10 3/uL 0.00-0.03 H code = IG#) LYMPHOCYTE # (test code = LY#) 1.34 x10 3/uL 1.0-3.8 N MONOCYTE # (test code = MO#) 0.52 x10 3/uL 0.1-0.8 N EOSINOPHIL # (test code = EO#) 1.29 x10 3/uL 0.0-0.2 H BASOPHIL # (test code = BA#) 0.03 x10 3/uL 0.0-0.2 N NUCLEATED RBC # (test code = 0.00 x10 3/uL 0.0-0.1 N NRBC#) MANUAL DIFF REQUIRED (test code NO = MDIFF) [id number] 07:55:00 Test Item Value Reference Range Interpretation Comments TROPONIN-I < 0.015 ng/mL 0.000-0.045 N Negative: <= (test code = 0.045 Positive: TROPI) >= 0.046 Correl ation with serial results, other cardiac markers andclinical findings is nec essary to determine the clinicalsignifi cance of this result. Results using different metho dologies should not be c omparedto one another as charli titative results may blanca y by method. COMMENTS: 3 troponins total (including troponin done in ED)ARTERIAL BLOOD GAS 2018-07-13 05:43:00 Test Item Value Reference Range Interpretation Comments ARTERIAL BLOOD GAS PH 7.223 7.35-7.45 LL (test code = PHA) ARTERIAL BLOOD GAS 64.5 mmHg 35-45 H PCO2 (test code = PCO2A) ARTERIAL BLOOD GAS PO2 428 mmHg 80-100 H (test code = PO2A) BICARBONATE TOTAL HCO3 26.8 mmol/L 22.0-26.0 H (test code = HCO3) BASE EXCESS (test code -1.0 mmol/L -4-4 N = STEVE) ABG O2 SATURATION 100 % 90-100 N (test code = SATA) FIO2 (test code = 100 % FIO2A) ABG DELIVERY (test Vent code = TAYLER) ABG VENT MODE (test AC v con code = MODEA) ABG VENT RESP RATE 14 /MIN (test code = RRA) ABG TIDAL VOLUME (test 450 ml code = TVA) ABG PEEP (test code = 5 cmH2O Perfor med by PEEPA) certified opera tor at [facility] ABG TEMPERATURE (test 97.7 F code = TEMPA) ABG SITE (test code = R Rad SITEA) PREDICTED AA GRADIENT 165 (test code = AP) PREDICTED PO2 (test 470 code = OP) a/A RATIO (test code = 0.67 RATIO) TCO2 ARTERIAL (test 29 code = TCO2A) A-A GRADIENT (test 208 code = AAGRADE) - XR CHEST 1 [id number] 05:35:00 FAX: Naveen Nieves MD [phone] [place]: St: REG Name: MEE PRIETO [facility] : 1980 Age/S: 38/F [address] [place] [address] Bl Unit#: [id number] Loc: [place] [address] Phys: Naveen Coello MD Acct: [id number] Dis Date: Status: REG ER PHONE #: [phone] Exam Date: 07/13/2018529 FAX #: [phone] Reason: POST INTUBATION EXAMS: CPT CODE: [id number] XR CHEST 1 V [id number] Chest, single view dated 07/13/2018. HISTORY: Asthma exacerbation. Post intubation. Comparison is made to a prior study dated 07/13/2018at 2:09 AM. The tip of the endotracheal tube projects approximately 2 cm above the eliana. A nasogastric tube courses into the stomach with the tip likely positioned in the gastric body. The heart is normal in size. The cardiomediastinal shadow is stable. The lungs appear clear. The pulmonary vasculature is normal in caliber. No acute pleural space abnormalities are identified. IMPRESSION: 1. Endotracheal tube and nasogastrictube placement. 2. No radiographic evidence of acute cardiopulmonary disease. SL: 131 at 0535 Reported and signed by: Jorge Luis Evans M.D. CC: Naveen Coello MD Technologist: Melania RT(R); Dipti Arce RT(R) Trnmnrd Date/Time/By: 07/13/2018 (0535) : By: Katie Orig Print D/T: S: 07/13/2018 (0553) PAGE 1 Signed ReportB-TYPE NATRIURETIC [id number] 04:38:00 Test Item Value Reference Range Interpretation Comments B-TYPE NATRIURETIC PEPTIDE (test 23.7 PG/ML 0-100 N code = BNP) ARTERIAL BLOOD [id number] 04:19:00 Test Item Value Reference Range Interpretation Comments ARTERIAL BLOOD GAS PH (test code 7.277 7.35-7.45 L = PHA) ARTERIAL BLOOD GAS PCO2 (test 55.2 mmHg 35-45 H code = PCO2A) ARTERIAL BLOOD GAS PO2 (test code 110 mmHg 80-100 H = PO2A) BICARBONATE TOTAL HCO3 (test code 25.8 mmol/L 22.0-26.0 N = HCO3) BASE EXCESS (test code = STEVE) -1.0 mmol/L -4-4 N ABG O2 SATURATION (test code = 97 % 90-100 N SATA) ABG DELIVERY (test code = TAYLER) Nrb mask ABG TEMPERATURE (test code = 98.7 F TEMPA) ABG SITE (test code = SITEA) R Rad TCO2 ARTERIAL (test code = TCO2A) 27 CBC W/AUTO [id number] 04:01:00 Test Item Value Reference Range Interpretation Comments WHITE BLOOD CELL (test code = 11.98 x10 3/uL 4.5-11.0 H WBC) RED BLOOD CELL (test code = 4.28 x10 6/uL 3.54-5.02 N RBC) HEMOGLOBIN (test code = HGB) 12.8 g/dL 11.0-15.0 N HEMATOCRIT (test code = HCT) 38.4 % 33.0-45.0 N MEAN CELL VOLUME (test code = 89.7 fL 81.0-99.0 N MCV) MEAN CELL HGB (test code = 29.9 pg 27.0-33.0 N MCH) MEAN CELL HGB CONCETRATION 33.3 g/dL 33.0-37.0 N (test code = MCHC) RED CELL DISTRIBUTION WIDTH CV 12.9 % 11.5-14.5 N (test code = RDW) RED CELL DISTRIBUTION WIDTH SD 42.4 fL 37.0-54.0 N (test code = RDW-SD) PLATELET COUNT (test code = 215 x10 3/uL 150-400 N PLT) MEAN PLATELET VOLUME (test 10.4 fL 7.0-9.0 H code = MPV) NEUTROPHIL % (test code = NT%) 52.9 % 56.0-77.0 L IMMATURE GRANULOCYTE % (test 0.3 % 0.0-2.0 N code = IG%) LYMPHOCYTE % (test code = LY%) 23.4 % 14.0-32.0 N MONOCYTE % (test code = MO%) 6.4 % 4.8-9.0 N EOSINOPHIL % (test code = EO%) 16.6 % 0.3-3.7 H BASOPHIL % (test code = BA%) 0.4 % 0.0-2.0 N NUCLEATED RBC % (test code = 0.0 % 0-0 N NRBC%) NEUTROPHIL # (test code = NT#) 6.33 x10 3/uL 2.0-7.6 N IMMATURE GRANULOCYTE # (test 0.04 x10 3/uL 0.00-0.03 H code = IG#) LYMPHOCYTE # (test code = LY#) 2.80 x10 3/uL 1.0-3.8 N MONOCYTE # (test code = MO#) 0.77 x10 3/uL 0.1-0.8 N EOSINOPHIL # (test code = EO#) 1.99 x10 3/uL 0.0-0.2 H BASOPHIL # (test code = BA#) 0.05 x10 3/uL 0.0-0.2 N NUCLEATED RBC # (test code = 0.00 x10 3/uL 0.0-0.1 N NRBC#) MANUAL DIFF REQUIRED (test NO code = MDIFF) CHEMISTRY 8 [id number] 03:39:00 Test Item Value Reference Range Interpretation Comments ISTAT-SODIUM (test code = NAP) MMOL/L 134-147 ISTAT-POTASSIUM (test code = KP) MMOL/L 3.4-5.0 ISTAT-CHLORIDE (test code = CLP) MMOL/L 100-108 ISTAT CARBON DIOXIDE (test code = mmol/L 21-33 N ISTAT-CO2) ISTAT CALCIUM IONIZED (test code = MG/DL 1.12-1.32 ISTAT-MARCE) ISTAT-GLUCOSE (test code = GLUP) MG/DL 70-110 H ISTAT-BUN (test code = BUNP) MG/DL 7-18 H BEDSIDE CREATININE (test code = MG/DL 0.6-1.3 N CREATBED) GLOMERULAR FILTRATION RATE POC 85 ML/MIN (test code = GFRBED) CHEMISTRY 8 [id number] 03:39:00 Test Item Value Reference Range Interpretation Comments ISTAT-SODIUM (test 137 MMOL/L 134-147 N code = NAP) ISTAT-POTASSIUM (test 4.4 MMOL/L 3.4-5.0 N code = KP) ISTAT-CHLORIDE (test 100 MMOL/L 100-108 N Perform ed by code = CLP) certified opera tor at 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 The universal defin ition of CO, according to th is taskforce, is d efined as a typical rise an d gradual fall ofcardiac biomarkers (preferably tro ponin) with at least oneval ue above the 99th percentile of the upper reference limit (URL) together with e vidence of myocardial isch emia with at least one of th e following:* isc hemic symptoms,* path ological Q waves on electr ocardiogram (ECG),* ischemi c ECG changes,* or im aging evidence of new loss of viable myocardi um or new regional wall m otion abnormality. An elevated troponin value alone is not sufficient todi agnose a myocardial infa rction. Rather, the pat ient sclinical prese ntation (history, physi blanquita exam) and ECGshould b e used in conjunction wit h troponin in thediagnosti c evaluation of suspected my ocardial infarction. Ase rial sampling protoc ol is recommended to facilitate the identificat ion of temporal change s in troponin levels characteristic of CO. - XR CHEST 1 [id number] 02:58:00 FAX: Naveen Nieves MD [phone] [place]: St: REG Name: MEE PRIETO [facility] : 1980 Age/S: 38/F [address] [place] [address] Unit#: [id number] Loc: [place] [address] Phys: Naveen Coello MD Acct: [id number] Dis Date: Status: REG ER PHONE #: [phone] Exam Date: 07/13/2018225 FAX #: [phone] Reason: cough EXAMS: CPT CODE: [id number] XR CHEST 1 V [id number] Chest, single view dated 07/13/2018. HISTORY: Cough. Asthma exacerbation. No prior studies are available for comparison. The heart is normal in size. The cardiomediastinal shadow appears within normal limits. The lungs appear clear. The pulmonary vasculature is normal in caliber. No acute pleural space abnormalities are identified. IMPRESSION: 1. No radiographic evidence of acute cardiopulmonary disease. SL: 131 at 0258 Reported and signed by: Jorge Luis Evans M.D. CC: Naveen Coello MD Technologist: Harjinder Wu Trnscrd Date/Time/By: 07/13/2018 (0258) : By: Katie Orig Print D/T: S: 07/13/2018 (4913) PAGE 1 Signed Report
[2020-01-08] MEDS ORDERED: dexAMETHasone 10 MG/ML VIAL ONE (09:46)
[2020-01-08] MEDS ORDERED: KETOROLAC 30 MG/ML INJ ONE (09:46)
--- NOTE | 2020-01-08 11:10 | ER ---
Nurse's Notes [facility] Name: Mee Prieto Age: 39 yrs Sex: Female : 1980 Arrival Date: 01/08/2020 Time: 09:07 Bed 8 Private MD: Diagnosis: Low back pain;Sciatica, left side Presentation: 01/07 09:18 Chief complaint: Left low back pain that radiates to left leg after lifting heavy boxes hb 2 days ago. Coronavirus screen: Proceed with normal triage. Ebola Screen: No symptoms or risks identified at this time. Initial Sepsis Screen: Does the patient meet any 2 criteria? No. Patient's initial sepsis screen is negative. Does the patient have a suspected source of infection? No. Patient's initial sepsis screen is negative. Risk Assessment: Do you want to hurt yourself or someone else? Patient reports no desire to harm self or others. Onset of symptoms was January 08, 2020. 09:18 Method Of Arrival: Ambulatory 09:18 Acuity: KWADWO 4 hb Triage Assessment: 09:20 General: Appears in no apparent distress. uncomfortable, Behavior is calm, cooperative, bp appropriate for age. Pain: Complains of pain in left leg. EENT: No deficits noted. Neuro: No deficits noted. Cardiovascular: No deficits noted. Respiratory: No deficits noted. GI: No signs and/or symptoms were reported involving the gastrointestinal system. : No signs and/or symptoms were reported regarding the genitourinary system. Derm: No deficits noted. Musculoskeletal: Circulation, motion, and sensation intact. Range of motion: intact in all extremities. 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 - Social history:: Smoking status: Patient denies any tobacco usage or history of. Screenin:29 Abuse screen: Denies threats or abuse. Denies injuries from another. Nutritional bp screening: No deficits noted. Tuberculosis screening: No symptoms or risk factors identified. Fall Risk None identified. Assessment: 09:20 General: SEE TRIAGE NOTE. bp 09:20 Neuro: Level of Consciousness is awake, alert, obeys commands, Oriented to person, bp place, time, situation, Appropriate for age Gait is steady. 10:01 Reassessment: PT AMBULATE TO RESTROOM AND BACK WITH STEADY GAIT. bp 10:19 Reassessment: MEDICATION RECD FROM PHARMACY AND INFUSING. VS STABLE ON MONITOR. bp 11:17 Reassessment: PT D/C HOME AMBULATORY, DX WITH LEFT SIDED SCIATICA. bp Vital Signs: 09:18 BP 116 / 69; Pulse 106; Resp 16; Temp 97.3; Pulse Ox 99% ; Weight 72.57 kg; Height 5 hb ft. 3 in. (160.02 cm); Pain 9/10; 10:19 BP 125 / 83; Pulse 94; Resp 17; Pulse Ox 100% ; bp 11:17 BP 121 / 79; Pulse 87; Resp 17; Temp 98; Pulse Ox 99% ; bp 09:18 Body Mass Index 28.34 (72.57 kg, 160.02 cm) hb ED Course: 09:07 Patient arrived in ED. as 09:16 Fabrice Moody PA is PHCP. jr8 09:16 Trino Salvador MD is Attending Physician. jr8 09:19 Triage completed. hb 09:19 Arm band placed on. hb 09:29 Patient has correct armband on for positive identification. Bed in low position. Call bp light in reach. Side rails up X2. 09:33 Reji Martin, TELLO is Primary Nurse. bp 10:10 Inserted saline lock: 24 gauge in left hand, using aseptic technique. bp 11:17 No provider procedures requiring assistance completed. IV discontinued, intact, bp bleeding controlled, No redness/swelling at site. Pressure dressing applied. Administered Medications: 10:10 Drug: Decadron - Dexamethasone 10 mg Route: IVP; Site: left hand; bp 11:20 Follow up: Response: No adverse reaction bp 10:10 Drug: TORadol - Ketorolac 15 mg Route: IVP; Site: left hand; bp 11:19 Follow up: Response: Pain is decreased bp 10:10 Drug: Robaxin 1 grams Route: IVPB; Infused Over: 1 hrs; Site: left hand; bp 11:20 Follow up: IV Intake: 110ml bp 11:20 Follow up: IV Status: Completed infusion bp Intake: 11:20 IV: 110ml; Total: 110ml. bp Outcome: 11:09 Discharge ordered by MD. solorzano 11:17 Discharged to home ambulatory. bp 11:17 Condition: stable 11:17 Discharge instructions given to patient, Instructed on discharge instructions, follow up and referral plans. medication usage, Demonstrated understanding of instructions, follow-up care, medications, Prescriptions given X 3. 11:21 Patient left the ED. bp Signatures: Cyndi Azevedo Josh, PA PA jr8 Demi Hernandez, TELLO RN Reji Martin RN RN bp Corrections: (The following items were deleted from the chart) 11:19 11:17 Discharge instructions given to patient, Instructed on discharge instructions, bp follow up and referral plans. medication usage, Demonstrated understanding of instructions, follow-up care, medications, Prescriptions given X 2, bp
--- NOTE | 2020-01-08 11:10 | EDPHYS ---
Physician Documentation [facility] Name: Mee Prieto Age: 39 yrs Sex: Female : 1980 Arrival Date: 01/08/2020 Time: 09:07 Bed 8 Private MD: ED Physician Trino Salvador HPI: 01/07 10:00 This 39 yrs old Female presents to ER via Ambulatory with complaints of Back jr8 Pain, Leg Pain. 10:00 The patient presents with pain that is acute. The symptoms are located in the low back. jr8 Onset: The symptoms/episode began/occurred acutely, yesterday. The pain radiates to the left leg. Associated signs and symptoms: The patient has no apparent associated signs or symptoms. The problem was sustained when lifting boxes. Modifying factors: The patient symptoms are alleviated by nothing, the patient symptoms are aggravated by any movement. Severity of symptoms: At their worst the symptoms were moderate, in the emergency department the symptoms are unchanged. The patient has not experienced similar symptoms in the past. The patient has not recently seen a physician. Stated that she felt pop while moving boxes. Now having left low back pain with radiation to buttock. Denies numbness, tingling, saddle anesthesia, bowel, or bladder dysfunction . 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 - Social history:: Smoking status: Patient denies any tobacco usage or history of. ROS: 10:00 Eyes: Negative for injury, pain, redness, and discharge, ENT: Negative for injury, jr8 pain, and discharge, Neck: Negative for injury, pain, and swelling, Cardiovascular: Negative for chest pain, palpitations, and edema, Respiratory: Negative for shortness of breath, cough, wheezing, and pleuritic chest pain, Abdomen/GI: Negative for abdominal pain, nausea, vomiting, diarrhea, and constipation, MS/Extremity: Negative for injury and deformity, Skin: Negative for injury, rash, and discoloration, Neuro: Negative for headache, weakness, numbness, tingling, and seizure. 10:00 Back: Positive for decreased range of motion, pain at rest, pain with movement, radiated pain, of the left low back. Exam: 10:00 Eyes: Pupils equal round and reactive to light, extra-ocular motions intact. Lids and jr8 lashes normal. Conjunctiva and sclera are non-icteric and not injected. Cornea within normal limits. Periorbital areas with no swelling, redness, or edema. ENT: Nares patent. No nasal discharge, no septal abnormalities noted. Tympanic membranes are normal and external auditory canals are clear. Oropharynx with no redness, swelling, or masses, exudates, or evidence of obstruction, uvula midline. Mucous membranes moist. Neck: Trachea midline, no thyromegaly or masses palpated, and no cervical lymphadenopathy. Supple, full range of motion without nuchal rigidity, or vertebral point tenderness. No Meningismus. Cardiovascular: Regular rate and rhythm with a normal S1 and S2. No gallops, murmurs, or rubs. Normal PMI, no JVD. No pulse deficits. Respiratory: Lungs have equal breath sounds bilaterally, clear to auscultation and percussion. No rales, rhonchi or wheezes noted. No increased work of breathing, no retractions or nasal flaring. Abdomen/GI: Soft, non-tender, with normal bowel sounds. No distension or tympany. No guarding or rebound. No evidence of tenderness throughout. Skin: Warm, dry with normal turgor. Normal color with no rashes, no lesions, and no evidence of cellulitis. MS/ Extremity: Pulses equal, no cyanosis. Neurovascular intact. Full, normal range of motion. Neuro: Awake and alert, GCS 15, oriented to person, place, time, and situation. Cranial nerves II-XII grossly intact. Motor strength 5/5 in all extremities. Sensory grossly intact. Cerebellar exam normal. Normal gait. 10:00 Back: pain, that is moderate, of the left low back, ROM is painful, normal spinal alignment noted, CVA tenderness, is absent, Straight leg raises: left lower extremity illicits pain, at 60 degrees. Vital Signs: 09:18 BP 116 / 69; Pulse 106; Resp 16; Temp 97.3; Pulse Ox 99% ; Weight 72.57 kg; Height 5 hb ft. 3 in. (160.02 cm); Pain 9/10; 10:19 BP 125 / 83; Pulse 94; Resp 17; Pulse Ox 100% ; bp 11:17 BP 121 / 79; Pulse 87; Resp 17; Temp 98; Pulse Ox 99% ; bp 09:18 Body Mass Index 28.34 (72.57 kg, 160.02 cm) hb MDM: 09:21 Patient medically screened. jr8 11:08 Data reviewed: vital signs, nurses notes, and as a result, I will discharge patient. jr8 Data interpreted: Pulse oximetry: on room air is 100 %. Interpretation: normal. Counseling: I had a detailed discussion with the patient and/or guardian regarding: the historical points, exam findings, and any diagnostic results supporting the discharge/admit diagnosis, the need for outpatient follow up, a family practitioner, to return to the emergency department if symptoms worsen or persist or if there are any questions or concerns that arise at home. Response to treatment: the patient's symptoms have markedly improved after treatment. 01/07 09:27 Order name: IV; Complete Time: 10:17 jr8 Administered Medications: 10:10 Drug: Decadron - Dexamethasone 10 mg Route: IVP; Site: left hand; bp 11:20 Follow up: Response: No adverse reaction bp 10:10 Drug: TORadol - Ketorolac 15 mg Route: IVP; Site: left hand; bp 11:19 Follow up: Response: Pain is decreased bp 10:10 Drug: Robaxin 1 grams Route: IVPB; Infused Over: 1 hrs; Site: left hand; bp 11:20 Follow up: IV Intake: 110ml bp 11:20 Follow up: IV Status: Completed infusion bp Disposition: 15:42 Co-signature as Attending Physician, Trino Salvador MD I agree with the assessment and kdr plan of care. Disposition: 01/08/20 11:09 Discharged to Home. Impression: Low back pain, Sciatica, left side. - Condition is Stable. - Discharge Instructions: Back Pain, Adult, Musculoskeletal Pain, Sciatica, Heat Therapy. - Prescriptions for Ibuprofen 800 mg Oral Tablet - take 1 tablet by ORAL route every 12 hours As needed take with food; 20 tablet. Robaxin 500 mg Oral Tablet - take 2 tablet by ORAL route every 6 hours As needed; 40 tablet. Medrol (Emile) 4 mg Oral Tablets, Dose Pack - take 1 tablet by ORAL route as directed - follow package instructions; 1 packet. - Medication Reconciliation Form, Thank You Letter, Antibiotic Education, Prescription Opioid Use, Work release form form. - Follow up: Private Physician; When: 1 week; Reason: Recheck today's complaints, Continuance of care, Re-evaluation by your physician. - Problem is new. - Symptoms have improved. Signatures: Trino Salvador MD MD [facility] Fabrice Moody PA PA jr8 Demi Hernandez, TELLO RN Reji Martin RN RN bp Corrections: (The following items were deleted from the chart) 11:21 11:09 01/08/2020 11:09 Discharged to Home. Impression: Low back pain; Sciatica, left bp side. Condition is Stable. Forms are Medication Reconciliation Form, Thank You Letter, Antibiotic Education, Prescription Opioid Use. Follow up: Private Physician; When: 1 week; Reason: Recheck today's complaints, Continuance of care, Re-evaluation by your physician. Problem is new. Symptoms have improved. jr8
[2020-01-08 11:31] VITALS: BP 121/79; TEMP 98; O2SAT 99
== END 2020-01-08 11:21 | disposition home or self-care (01) ==
LOC: ER 09:06
DX: M54.32 Sciatica, left side (principal); E03.9 Hypothyroidism, unspecified; F32.9 Major depressive disorder, single episode, unspecified
CPT/HCPCS: 96365; 96375; 99283; J1100; J2800